=== PATIENT | male | born 1960 | race African-American/Black ===

== ENCOUNTER 2019-05-20 19:49 | Observation (INO) ==
[2019-05-20] MEDS ORDERED: NITROGLYCERIN DRIP 50 MG/250 ML BOTTLE IV PRN (21:20)
[2019-05-20 21:44] LABS: Basophils % 0.6 % (0.0-0.8); Eosinophils # 0.3 10*3/uL (0.0-0.87); Eosinophils % 6.5 % (0.00-10.9); Hematocrit 43.8 VOL% (42.0-52.0); Hemoglobin 13.6 GM/DL (14.0-18.0); Immature Granulocytes % 0.2 %; Immature Granulocytes Absolute 0.01 #; Lymphocytes % 57.3 % (21.2-54.2); Mean Corpuscular HGB Conc 31.1 GM/DL (32-36); Mean Corpuscular Volume 91.4 FL (87-102); Mean Platelet Volume 12.1 FL (9.6-12.0); Monocytes % 13.2 % (1.7-12.7); Neutrophils % 22.2 % (38.7-73.9); Platelet Count 187 T/CUMM (130-400); Red Blood Count 4.79 MC/CUMM (3.8-5.5); Red Cell Distribution Width 15.2 % (9.3-17.3); White Blood Count 5.2 T/CUMM (4-12)
[2019-05-20 21:56] LABS: PT Patient Result 10.7 SECS (9.8-11.9)
[2019-05-20 22:01] LABS: Calcium 9.1 MG/DL (8.5-10.1); Osmolality,Calculated 276.5 MOS/KG (273-304)
[2019-05-20] MEDS ORDERED: ACETAMINOPHEN 325 MG TABLET PO PRN (22:32)
[2019-05-20] MEDS ORDERED: ONDANSETRON 4 MG/2 ML VIAL IV PRN (22:32)
[2019-05-20] MEDS ORDERED: MAGNESIUM HYDROXIDE SUSP 30 ML UDCUP PO PRN (22:32)
[2019-05-20] MEDS ORDERED: GLUCAGON 1 MG VIAL IM PRN (22:32)
[2019-05-20] MEDS ORDERED: ZALEPLON 5 MG CAPSULE PO PRN (22:32)
[2019-05-20] MEDS ORDERED: DEXTROSE 50% 25 GM/50 ML VIAL IV PRN (22:32)
[2019-05-20] MEDS ORDERED: POTASSIUM CHLORIDE 20 MEQ TABLET PO PRN (22:32)
[2019-05-20] MEDS ORDERED: BISACODYL 5 MG TABLET PO PRN (22:32)
[2019-05-20] MEDS ORDERED: NITROGLYCERIN SL 0.4 MG TABLET SL PRN (22:32)
[2019-05-20] MEDS ORDERED: ALBUTEROL 2.5 MG/3 ML NEB RESP TX PRN (22:47)
[2019-05-20] MEDS: MORPHINE 4 MG/1 ML VIAL IV PRN (23:26)
[2019-05-20] MEDS ORDERED: MAGNESIUM SULF RIDER 2 GM in PREMIX 1 EACH IV PRN (23:30)
[2019-05-21 00:45] LABS: Eosinophils 9 % (0-10); Hypochromasia Slight; Lymphocytes 59 % (20-55); Metamyelocytes 1 %; Platelet Estimate Adequate; Segmented Neutrophils 27 % (50-85); Total Cells Counted 100
[2019-05-21] MEDS: MORPHINE 4 MG/1 ML VIAL IV PRN ×3 (02:58→23:35)
[2019-05-21 06:39] LABS: HDL Cholesterol 44 MG/DL (40-60); Risk Ratio 2.57; Triglycerides 81 MG/DL (2-150); Troponin I < 0.015 NG/ML (0.00-0.045); VLDL CHOLESTEROL 16.2 MG/DL
[2019-05-21] MEDS: INSULIN LISPRO 100 UNIT/ML SUBCUT SCH ×4 (08:19→22:40)
[2019-05-21] MEDS: TICAGRELOR 90 MG TABLET PO SCH ×2 (08:20→22:25)
[2019-05-21] MEDS: lisinopriL 10 MG TABLET PO SCH (08:20)
[2019-05-21] MEDS: allopurinoL 100 MG TABLET PO SCH ×2 (08:20→22:26)
[2019-05-21] MEDS: FUROSEMIDE 40 MG TABLET PO SCH ×3 (08:20→22:25)
[2019-05-21] MEDS: carvediloL 3.125 MG TABLET PO SCH ×2 (08:20→17:29)
[2019-05-21] MEDS: ASPIRIN EC 325 MG TABLET PO SCH (08:20)
[2019-05-21] MEDS: ENOXAPARIN 40 MG/0.4 ML SYRINGE SUBCUT SCH (08:42)
[2019-05-21] MEDS: BUDESONIDE/FORMOTEROL 160-4.5 INHALER 6 GM INH SCH ×2 (13:49→22:27)
[2019-05-21] MEDS ORDERED: ATORVASTATIN 40 MG TABLET PO SCH (21:00)
[2019-05-22] MEDS: MORPHINE 4 MG/1 ML VIAL IV PRN (04:20)
[2019-05-22 04:32] LABS: Eosinophils # 0.3 10*3/uL (0.0-0.87); Eosinophils % 6.1 % (0.00-10.9); Hematocrit 42.9 VOL% (42.0-52.0); Hemoglobin 13.8 GM/DL (14.0-18.0); Immature Granulocytes % 0.2 %; Immature Granulocytes Absolute 0.01 #; Lymphocytes # 2.3 10*3/uL (1.4-4.0); Lymphocytes % 54.9 % (21.2-54.2); Mean Corpuscular HGB Conc 32.2 GM/DL (32-36); Mean Corpuscular Volume 87.7 FL (87-102); Mean Platelet Volume 12.5 FL (9.6-12.0); Monocytes % 14.6 % (1.7-12.7); Neutrophils % 23.2 % (38.7-73.9); Platelet Count 177 T/CUMM (130-400); Red Blood Count 4.89 MC/CUMM (3.8-5.5); Red Cell Distribution Width 15.1 % (9.3-17.3); White Blood Count 4.1 T/CUMM (4-12)
[2019-05-22 04:51] LABS: Calcium 9.1 MG/DL (8.5-10.1); Osmolality,Calculated 272.8 MOS/KG (273-304)
[2019-05-22 05:07] LABS: Eosinophils 7 % (0-10); Lymphocytes 64 % (20-55); Platelet Estimate Adequate; Segmented Neutrophils 26 % (50-85); Total Cells Counted 100
[2019-05-22 05:08] LABS: Hypochromasia Slight; Polychromasia Few
[2019-05-22] MEDS: INSULIN LISPRO 100 UNIT/ML SUBCUT SCH (08:58)
[2019-05-22] MEDS ORDERED: RANOLAZINE 500 MG TABLET PO SCH (09:00)
[2019-05-22] MEDS: ENOXAPARIN 40 MG/0.4 ML SYRINGE SUBCUT SCH (09:19)
[2019-05-22] MEDS: TICAGRELOR 90 MG TABLET PO SCH (09:20)
[2019-05-22] MEDS: FUROSEMIDE 40 MG TABLET PO SCH (09:20)
[2019-05-22] MEDS: allopurinoL 100 MG TABLET PO SCH (09:20)
[2019-05-22] MEDS: ASPIRIN EC 325 MG TABLET PO SCH (09:20)
[2019-05-22] MEDS: carvediloL 3.125 MG TABLET PO SCH (09:20)
[2019-05-22] MEDS: lisinopriL 10 MG TABLET PO SCH (09:20)
[2019-05-22] MEDS: BUDESONIDE/FORMOTEROL 160-4.5 INHALER 6 GM INH SCH (09:23)
[2019-05-22 12:01] VITALS: BP 132/72
== END 2019-05-22 11:29 | disposition home or self-care (01) ==
LOC: N.TELEN → SUATTDRO 21:12
PROVIDERS: ADMIT Internal Medicine; ATTEND Internal Medicine

== ENCOUNTER 2019-09-21 11:20 | Observation (INO) ==
[2019-09-21] MEDS ORDERED: ASPIRIN 325 MG TABLET PO STA (11:46)
[2019-09-21] MEDS ORDERED: ENOXAPARIN 100 MG/ML SYRINGE SUBCUT STA (11:46)
[2019-09-21] MEDS ORDERED: ENOXAPARIN 120 MG/0.8 ML SYRINGE SUBCUT ONE (12:13)
[2019-09-21] MEDS: NITROGLYCERIN SL 0.4 MG TABLET SL PRN (12:15)
[2019-09-21 12:25] LABS: Basophils % 0.8 % (0.0-0.8); Eosinophils # 0.3 10*3/uL (0.0-0.87); Eosinophils % 5.3 % (0.00-10.9); Hematocrit 42.1 VOL% (42.0-52.0); Hemoglobin 13.8 GM/DL (14.0-18.0); Immature Granulocytes % 0.2 %; Immature Granulocytes Absolute 0.01 #; Lymphocytes # 2.6 10*3/uL (1.4-4.0); Lymphocytes % 53.8 % (21.2-54.2); Mean Corpuscular HGB Conc 32.8 GM/DL (32-36); Mean Corpuscular Volume 87.3 FL (87-102); Mean Platelet Volume 12.2 FL (9.6-12.0); Neutrophils % 23.9 % (38.7-73.9); Platelet Count 172 T/CUMM (130-400); Red Blood Count 4.82 MC/CUMM (3.8-5.5); Red Cell Distribution Width 14.5 % (9.3-17.3); White Blood Count 4.8 T/CUMM (4-12)
[2019-09-21 12:42] LABS: Bilirubin,Total 0.6 MG/DL (0.2-1.0); Total Protein 7.6 G/DL (6.4-8.3)
[2019-09-21 12:45] LABS: PT Patient Result 10.8 SECS (9.8-11.9)
[2019-09-21] MEDS ORDERED: diphenhydrAMINE CAP 25 MG CAPSULE PO PRN (12:56)
[2019-09-21] MEDS ORDERED: LACTULOSE 20 GM/30 ML UDCUP PO PRN (12:56)
[2019-09-21] MEDS ORDERED: ZALEPLON 5 MG CAPSULE PO PRN (12:56)
[2019-09-21] MEDS ORDERED: hydrALAZINE 20 MG/1 ML VIAL IV PRN (12:56)
[2019-09-21] MEDS ORDERED: BISACODYL 5 MG TABLET PO PRN (12:56)
[2019-09-21] MEDS ORDERED: ACETAMINOPHEN 325 MG TABLET PO PRN (12:56)
[2019-09-21] MEDS ORDERED: MAGNESIUM SULF RIDER 2 GM in PREMIX 1 EACH IV PRN (12:56)
[2019-09-21] MEDS ORDERED: POTASSIUM CHLORIDE 20 MEQ TABLET PO PRN (12:56)
[2019-09-21] MEDS ORDERED: ALUMINUM/MAGNES/SIMETH MAX STR 30 ML UDCUP PO PRN (12:56)
[2019-09-21] MEDS ORDERED: SIMETHICONE CHEW 125 MG TABLET PO PRN (13:00)
[2019-09-21] MEDS ORDERED: ENOXAPARIN 40 MG/0.4 ML SYRINGE SUBCUT SCH (13:00)
[2019-09-21] MEDS ORDERED: CALCIUM CARBONATE CHEW 500 MG TABLET PO PRN (13:00)
[2019-09-21] MEDS ORDERED: GLUCAGON 1 MG VIAL IM PRN (13:06)
[2019-09-21] MEDS ORDERED: DEXTROSE 50% 25 GM/50 ML VIAL IV PRN (13:06)
[2019-09-21 13:14] LABS: Band Neutrophils 1 % (0-10); Eosinophils 5 % (0-10); Lymphocytes 51 % (20-55); Platelet Estimate Normal; Segmented Neutrophils 32 % (50-85); Total Cells Counted 100
[2019-09-21] MEDS ORDERED: MAGNESIUM SULF RIDER 4 GM in PREMIX 1 EACH IV PRN (14:00)
[2019-09-21] MEDS: INSULIN LISPRO 100 UNIT/ML SUBCUT SCH ×2 (15:32→21:10)
[2019-09-21] MEDS: FUROSEMIDE 40 MG TABLET PO SCH ×2 (15:33→20:51)
[2019-09-21] MEDS: LABETALOL 200 MG TABLET PO SCH (20:51)
[2019-09-21] MEDS: TICAGRELOR 90 MG TABLET PO SCH (20:51)
[2019-09-21] MEDS: LUBIPROSTONE 24 MCG CAPSULE PO SCH (20:51)
[2019-09-21] MEDS: ATORVASTATIN 40 MG TABLET PO SCH (20:51)
[2019-09-21] MEDS: allopurinoL 100 MG TABLET PO SCH (20:51)
[2019-09-21] MEDS ORDERED: guaiFENesin/DM ER 600-30 MG TABLET PO PRN (21:00)
[2019-09-21] MEDS ORDERED: ENOXAPARIN 150 MG/ML SYRINGE SUBCUT ONE (21:00)
[2019-09-21] MEDS: MORPHINE 4 MG/1 ML VIAL IV PRN (22:04)
[2019-09-21] MEDS: ONDANSETRON 4 MG/2 ML VIAL IV PRN (22:05)
[2019-09-22] MEDS: MORPHINE 4 MG/1 ML VIAL IV PRN ×3 (02:28→23:04)
[2019-09-22] MEDS: ONDANSETRON 4 MG/2 ML VIAL IV PRN (02:28)
[2019-09-22 06:05] LABS: Basophils % 0.8 % (0.0-0.8); Eosinophils # 0.3 10*3/uL (0.0-0.87); Hematocrit 43.1 VOL% (42.0-52.0); Hemoglobin 13.4 GM/DL (14.0-18.0); Lymphocytes # 3.1 10*3/uL (1.4-4.0); Lymphocytes % 61.5 % (21.2-54.2); Mean Corpuscular HGB Conc 31.1 GM/DL (32-36); Mean Platelet Volume 12.4 FL (9.6-12.0); Monocytes % 13.8 % (1.7-12.7); Neutrophils % 18.9 % (38.7-73.9); Platelet Count 176 T/CUMM (130-400); Red Blood Count 4.79 MC/CUMM (3.8-5.5); Red Cell Distribution Width 14.4 % (9.3-17.3)
[2019-09-22 06:41] LABS: Blood Urea Nitrogen 9 MG/DL (7-18); Calcium 8.9 MG/DL (8.5-10.1); Estimated Glom Filtration Rate 107 ML/MIN; Glucose 81 MG/DL (74-106); HDL Cholesterol 39 MG/DL (40-60); Osmolality,Calculated 272.7 MOS/KG (273-304); Risk Ratio 2.33; Triglycerides 61 MG/DL (2-150); Troponin I < 0.015 NG/ML (0.00-0.045); VLDL CHOLESTEROL 12.2 MG/DL
[2019-09-22 06:49] LABS: Eosinophils 7 % (0-10); Lymphocytes 57 % (20-55); Segmented Neutrophils 20 % (50-85); Total Cells Counted 100
[2019-09-22 06:50] LABS: Hypochromasia 1+; Ovalocytes Slight; Platelet Estimate Adequate
[2019-09-22] MEDS ORDERED: DIAZEPAM 5 MG TABLET PO ONE (07:36)
[2019-09-22] MEDS ORDERED: diphenhydrAMINE CAP 25 MG CAPSULE PO ONE ×2 (07:36→10:30)
[2019-09-22] MEDS ORDERED: SODIUM CHLORIDE 0.45% 1,000 ML IV SCH (08:00)
[2019-09-22] MEDS ORDERED: lisinopriL 10 MG TABLET PO SCH (09:00)
[2019-09-22] MEDS ORDERED: ENOXAPARIN 40 MG/0.4 ML SYRINGE SUBCUT SCH (09:00)
[2019-09-22] MEDS ORDERED: CYANOCOBALAMIN 1000 MCG/1 ML VIAL IM SCH (09:00)
[2019-09-22] MEDS: ASPIRIN EC 81 MG TABLET PO SCH (09:10)
[2019-09-22] MEDS: DILTIAZEM CD 180 MG CAPSULE PO SCH (09:11)
[2019-09-22] MEDS: PANTOPRAZOLE 40 MG TABLET PO SCH (09:13)
[2019-09-22] MEDS: LABETALOL 200 MG TABLET PO SCH ×2 (09:13→21:29)
[2019-09-22] MEDS: INSULIN LISPRO 100 UNIT/ML SUBCUT SCH ×4 (09:50→21:31)
[2019-09-22] MEDS ORDERED: HEPARIN/NACL 0.9% 2 UNITS/ML 1,500 ML IV ONE (09:56)
[2019-09-22] MEDS ORDERED: LIDOCAINE 1% 20 ML VIAL ONE ×2 (09:56→11:11)
[2019-09-22] MEDS: ISOSORBIDE MONONITRATE 60 MG TABLET PO SCH (10:28)
[2019-09-22] MEDS: LUBIPROSTONE 24 MCG CAPSULE PO SCH ×2 (10:28→21:31)
[2019-09-22] MEDS: TICAGRELOR 90 MG TABLET PO SCH ×2 (10:28→21:28)
[2019-09-22] MEDS: FUROSEMIDE 40 MG TABLET PO SCH ×3 (10:28→21:29)
[2019-09-22] MEDS: allopurinoL 100 MG TABLET PO SCH ×2 (10:29→21:28)
[2019-09-22] MEDS: predniSONE 20 MG TABLET PO SCH ×3 (10:38→21:29)
[2019-09-22] MEDS: FAMOTIDINE 20 MG/2 ML VIAL IV SCH ×2 (10:38→21:30)
[2019-09-22] MEDS: diphenhydrAMINE 50 MG/1 ML VIAL IV SCH ×3 (10:43→23:11)
[2019-09-22] MEDS ORDERED: fentaNYL 100 MCG/2 ML VIAL ONE (11:11)
[2019-09-22] MEDS ORDERED: MIDAZOLAM 2 MG/2 ML VIAL ONE ×2 (11:11→12:00)
[2019-09-22] MEDS ORDERED: HEPARIN 5,000 UNIT/1 ML VIAL ONE (11:54)
[2019-09-22] MEDS ORDERED: TICAGRELOR 90 MG TABLET ONE (11:55)
[2019-09-22] MEDS ORDERED: diphenhydrAMINE 50 MG/1 ML VIAL IV SCH (12:00)
[2019-09-22] MEDS ORDERED: NITROGLYCERIN DRIP 50 MG/250 ML BOTTLE IV ONE (12:02)
[2019-09-22] MEDS ORDERED: SODIUM CHLORIDE 0.9% 1,000 ML IV SCH (13:00)
[2019-09-22] MEDS: NITROGLYCERIN SL 0.4 MG TABLET SL PRN ×2 (17:59→18:16)
[2019-09-22] MEDS: ATORVASTATIN 40 MG TABLET PO SCH (21:29)
[2019-09-23] MEDS: predniSONE 20 MG TABLET PO SCH ×4 (03:36→21:04)
[2019-09-23] MEDS: diphenhydrAMINE 50 MG/1 ML VIAL IV SCH ×3 (03:37→15:42)
[2019-09-23] MEDS: MORPHINE 4 MG/1 ML VIAL IV PRN ×3 (05:16→21:13)
[2019-09-23 05:28] LABS: Basophils % 0.2 % (0.0-0.8); Hematocrit 41.3 VOL% (42.0-52.0); Hemoglobin 13.3 GM/DL (14.0-18.0); Immature Granulocytes % 0.5 %; Immature Granulocytes Absolute 0.03 #; Lymphocytes # 1.1 10*3/uL (1.4-4.0); Lymphocytes % 17.6 % (21.2-54.2); Mean Corpuscular HGB Conc 32.2 GM/DL (32-36); Mean Corpuscular Volume 89.8 FL (87-102); Mean Platelet Volume 11.8 FL (9.6-12.0); Monocytes % 1.1 % (1.7-12.7); Neutrophils % 80.6 % (38.7-73.9); Platelet Count 189 T/CUMM (130-400); Red Cell Distribution Width 14.6 % (9.3-17.3); White Blood Count 6.5 T/CUMM (4-12)
[2019-09-23 05:52] LABS: Osmolality,Calculated 276.1 MOS/KG (273-304)
[2019-09-23] MEDS: TICAGRELOR 90 MG TABLET PO SCH ×2 (09:54→21:03)
[2019-09-23] MEDS: DILTIAZEM CD 180 MG CAPSULE PO SCH (09:54)
[2019-09-23] MEDS: LABETALOL 200 MG TABLET PO SCH ×2 (09:55→21:04)
[2019-09-23] MEDS: LUBIPROSTONE 24 MCG CAPSULE PO SCH ×2 (09:55→21:04)
[2019-09-23] MEDS: ASPIRIN EC 81 MG TABLET PO SCH (09:56)
[2019-09-23] MEDS: allopurinoL 100 MG TABLET PO SCH ×2 (09:57→21:04)
[2019-09-23] MEDS: ISOSORBIDE MONONITRATE 60 MG TABLET PO SCH (09:57)
[2019-09-23] MEDS: PANTOPRAZOLE 40 MG TABLET PO SCH (09:57)
[2019-09-23] MEDS: INSULIN LISPRO 100 UNIT/ML SUBCUT SCH ×4 (09:58→21:09)
[2019-09-23 10:03] LABS: Troponin I < 0.015 NG/ML (0.00-0.045)
[2019-09-23] MEDS: FAMOTIDINE 20 MG/2 ML VIAL IV SCH ×2 (10:13→21:09)
[2019-09-23] MEDS ORDERED: ISOSORBIDE MONONITRATE 30 MG TABLET PO ONE (11:48)
[2019-09-23] MEDS: SODIUM CHLORIDE 0.9% 1,000 ML IV SCH (12:05)
[2019-09-23 12:34] LABS: Troponin I < 0.015 NG/ML (0.00-0.045)
[2019-09-23 15:22] LABS: Troponin I < 0.015 NG/ML (0.00-0.045)
[2019-09-23] MEDS: ATORVASTATIN 40 MG TABLET PO SCH (21:04)
[2019-09-24] MEDS: diphenhydrAMINE 50 MG/1 ML VIAL IV SCH ×2 (00:20→04:27)
[2019-09-24] MEDS: MORPHINE 4 MG/1 ML VIAL IV PRN (02:34)
[2019-09-24] MEDS: predniSONE 20 MG TABLET PO SCH (04:19)
[2019-09-24 05:34] LABS: Hematocrit 36.4 VOL% (42.0-52.0); Hemoglobin 11.9 GM/DL (14.0-18.0); Immature Granulocytes % 0.5 %; Immature Granulocytes Absolute 0.05 #; Lymphocytes # 1.4 10*3/uL (1.4-4.0); Lymphocytes % 12.7 % (21.2-54.2); Mean Corpuscular HGB Conc 32.7 GM/DL (32-36); Mean Corpuscular Volume 88.6 FL (87-102); Mean Platelet Volume 12.3 FL (9.6-12.0); Neutrophils % 82.8 % (38.7-73.9); Platelet Count 178 T/CUMM (130-400); Red Blood Count 4.11 MC/CUMM (3.8-5.5); Red Cell Distribution Width 14.6 % (9.3-17.3)
[2019-09-24 06:06] LABS: Calcium 8.4 MG/DL (8.5-10.1); Osmolality,Calculated 276.8 MOS/KG (273-304)
[2019-09-24 06:08] LABS: Calcium 8.5 MG/DL (8.5-10.1); Osmolality,Calculated 276.8 MOS/KG (273-304)
[2019-09-24] MEDS ORDERED: ISOSORBIDE MONONITRATE 30 MG TABLET PO SCH (09:00)
[2019-09-24] MEDS: PANTOPRAZOLE 40 MG TABLET PO SCH (10:27)
[2019-09-24] MEDS: allopurinoL 100 MG TABLET PO SCH (10:27)
[2019-09-24] MEDS: DILTIAZEM CD 180 MG CAPSULE PO SCH (10:27)
[2019-09-24] MEDS: TICAGRELOR 90 MG TABLET PO SCH (10:28)
[2019-09-24] MEDS: LUBIPROSTONE 24 MCG CAPSULE PO SCH (10:29)
[2019-09-24] MEDS: INSULIN LISPRO 100 UNIT/ML SUBCUT SCH ×2 (10:29→12:28)
[2019-09-24] MEDS: LABETALOL 200 MG TABLET PO SCH (10:29)
[2019-09-24] MEDS: ASPIRIN EC 81 MG TABLET PO SCH (10:34)
[2019-09-24] MEDS: SODIUM CHLORIDE 0.9% 1,000 ML IV SCH (11:52)
[2019-09-24 12:22] VITALS: BP 113/69
== END 2019-09-24 12:51 | disposition home or self-care (01) ==
LOC: N.ED 11:20 → N.EDINP 11:20 → MERGE 12:56 → N.EDINP 14:20 → N.TELES 14:23
PROVIDERS: ADMIT Internal Medicine Cardiovascular Disease; ATTEND Internal Medicine Cardiovascular Disease
PROC: CLCCHCL (ICD-10-PCS; 2019-09-22 11:45)

== ENCOUNTER 2019-09-28 11:37 | Observation (INO) ==
[2019-09-28] MEDS ORDERED: MORPHINE 4 MG/1 ML VIAL IV STA (12:06)
[2019-09-28] MEDS ORDERED: ONDANSETRON 4 MG/2 ML VIAL IV STA (12:06)
[2019-09-28] MEDS ORDERED: ASPIRIN 325 MG TABLET PO STA (12:06)
[2019-09-28] MEDS ORDERED: NITROGLYCERIN 2% OINT 1 INCH/GM PACK TOP STA (12:06)
[2019-09-28 12:16] LABS: Apearance,Urine CLEAR (Clear); Bilirubin,Urine Negative (Negative); Blood, Urine Negative (Negative); Glucose,Urine (UA) Negative (Negative); Ketones,Urine Negative (Negative); Nitrite,Urine Negative (Negative); Protein,Urine Negative; RBC,Urine <1 /HPF (0-4); Urine Color Colorless (Yellow); Urine Specific Gravity 1.004 (1.001-1.035); Urine Urobilinogen < 2.0 EU/DL (0.2-1.0)
[2019-09-28 12:16] LABS: Basophils % 0.3 % (0.0-0.8); Eosinophils # 0.2 10*3/uL (0.0-0.87); Eosinophils % 2.4 % (0.00-10.9); Hematocrit 43.3 VOL% (42.0-52.0); Hemoglobin 14.1 GM/DL (14.0-18.0); Immature Granulocytes % 0.4 %; Immature Granulocytes Absolute 0.04 #; Lymphocytes # 2.4 10*3/uL (1.4-4.0); Lymphocytes % 25.1 % (21.2-54.2); Mean Corpuscular HGB Conc 32.6 GM/DL (32-36); Mean Corpuscular Volume 87.3 FL (87-102); Mean Platelet Volume 11.6 FL (9.6-12.0); NRBC # 0.02 10*3/uL; Neutrophils % 57.8 % (38.7-73.9); Platelet Count 186 T/CUMM (130-400); Red Blood Count 4.96 MC/CUMM (3.8-5.5); Red Cell Distribution Width 14.6 % (9.3-17.3); White Blood Count 9.7 T/CUMM (4-12)
[2019-09-28 12:25] LABS: PT Patient Result 10.9 SECS (9.8-11.9); Partial Thromboplastin Time 31.3 SECS (23.9-33.8)
[2019-09-28 12:26] LABS: Albumin 3.7 G/DL (3.4-5.0); Calcium 9.2 MG/DL (8.5-10.1)
[2019-09-28 12:32] LABS: Ferritin 184.8 ng/ml (26-388)
[2019-09-28] MEDS ORDERED: ACETAMINOPHEN 500 MG TABLET PO STA (12:32)
[2019-09-28] MEDS ORDERED: ACETAMINOPHEN 500 MG TABLET ONE (12:34)
[2019-09-28] MEDS ORDERED: LEVOFLOXACIN INJ 500 MG in PREMIX 1 EACH IV STA (14:06)
[2019-09-28] MEDS ORDERED: SODIUM CHLORIDE 0.9% 1,000 ML IV STA (14:06)
[2019-09-28] MEDS ORDERED: ONDANSETRON 4 MG/2 ML VIAL IV PRN (14:28)
[2019-09-28] MEDS ORDERED: DEXTROSE 50% 25 GM/50 ML VIAL IV PRN (14:28)
[2019-09-28] MEDS ORDERED: GLUCAGON 1 MG VIAL IM PRN (14:28)
[2019-09-28] MEDS ORDERED: BISACODYL 5 MG TABLET PO PRN (14:28)
[2019-09-28] MEDS ORDERED: ALBUTEROL 2.5 MG/3 ML NEB RESP TX PRN (14:37)
[2019-09-28] MEDS ORDERED: NITROGLYCERIN SL 0.4 MG TABLET SL PRN (14:37)
[2019-09-28] MEDS ORDERED: INSULIN REGULAR 100 UNIT/ML SUBCUT SCH (16:30)
[2019-09-28] MEDS ORDERED: MORPHINE 4 MG/1 ML VIAL IV PRN (18:19)
[2019-09-28] MEDS ORDERED: predniSONE 20 MG TABLET PO ONE (18:54)
[2019-09-28] MEDS: BUDESONIDE/FORMOTEROL 160-4.5 INHALER 6 GM INH SCH (20:50)
[2019-09-28] MEDS: allopurinoL 100 MG TABLET PO SCH (20:51)
[2019-09-28] MEDS: ACETAMINOPHEN 325 MG TABLET PO PRN (20:51)
[2019-09-28] MEDS: TICAGRELOR 90 MG TABLET PO SCH (20:51)
[2019-09-28] MEDS: ATORVASTATIN 40 MG TABLET PO SCH (20:51)
[2019-09-28] MEDS: LUBIPROSTONE 24 MCG CAPSULE PO SCH (20:51)
[2019-09-28] MEDS: ENOXAPARIN 40 MG/0.4 ML SYRINGE SUBCUT SCH (20:52)
[2019-09-29] MEDS: ACETAMINOPHEN 325 MG TABLET PO PRN (00:40)
[2019-09-29 06:55] LABS: Basophils % 0.1 % (0.0-0.8); Eosinophils % 0.1 % (0.00-10.9); Hematocrit 40.8 VOL% (42.0-52.0); Hemoglobin 13.1 GM/DL (14.0-18.0); Immature Granulocytes % 0.3 %; Immature Granulocytes Absolute 0.03 #; Lymphocytes # 1.1 10*3/uL (1.4-4.0); Lymphocytes % 12.6 % (21.2-54.2); Mean Corpuscular HGB Conc 32.1 GM/DL (32-36); Mean Corpuscular Volume 88.5 FL (87-102); Mean Platelet Volume 11.9 FL (9.6-12.0); Monocytes % 4.4 % (1.7-12.7); Neutrophils % 82.5 % (38.7-73.9); Platelet Count 192 T/CUMM (130-400); Red Blood Count 4.61 MC/CUMM (3.8-5.5); Red Cell Distribution Width 14.7 % (9.3-17.3); White Blood Count 9.1 T/CUMM (4-12)
[2019-09-29 07:24] LABS: Calcium 8.8 MG/DL (8.5-10.1); Osmolality,Calculated 271.2 MOS/KG (273-304)
[2019-09-29] MEDS: allopurinoL 100 MG TABLET PO SCH ×2 (08:36→20:45)
[2019-09-29] MEDS: ASPIRIN EC 81 MG TABLET PO SCH (08:36)
[2019-09-29] MEDS: DILTIAZEM CD 180 MG CAPSULE PO SCH (08:36)
[2019-09-29] MEDS: lisinopriL 10 MG TABLET PO SCH (08:37)
[2019-09-29] MEDS: FAMOTIDINE 20 MG TABLET PO SCH ×2 (08:37→20:45)
[2019-09-29] MEDS: carvediloL 3.125 MG TABLET PO SCH ×2 (08:37→16:49)
[2019-09-29] MEDS: RANOLAZINE 500 MG TABLET PO SCH ×2 (08:37→20:45)
[2019-09-29] MEDS: TICAGRELOR 90 MG TABLET PO SCH ×2 (08:37→20:45)
[2019-09-29] MEDS: FUROSEMIDE 40 MG TABLET PO SCH (08:37)
[2019-09-29] MEDS: ISOSORBIDE MONONITRATE 30 MG TABLET PO SCH (08:37)
[2019-09-29] MEDS ORDERED: LEVOFLOXACIN INJ 750 MG in PREMIX 1 EACH IV SCH (09:30)
[2019-09-29] MEDS: BUDESONIDE/FORMOTEROL 160-4.5 INHALER 6 GM INH SCH ×2 (09:44→20:45)
[2019-09-29] MEDS: LEVOFLOXACIN 750 MG TABLET PO SCH (11:08)
[2019-09-29] MEDS: ENOXAPARIN 40 MG/0.4 ML SYRINGE SUBCUT SCH (20:45)
[2019-09-29] MEDS: ATORVASTATIN 40 MG TABLET PO SCH (20:45)
[2019-09-29] MEDS: LUBIPROSTONE 24 MCG CAPSULE PO SCH (20:45)
[2019-09-30 05:06] LABS: Basophils % 0.2 % (0.0-0.8); Eosinophils # 0.2 10*3/uL (0.0-0.87); Eosinophils % 2.8 % (0.00-10.9); Hematocrit 38.5 VOL% (42.0-52.0); Hemoglobin 12.4 GM/DL (14.0-18.0); Immature Granulocytes % 0.5 %; Immature Granulocytes Absolute 0.04 #; Lymphocytes # 2.5 10*3/uL (1.4-4.0); Lymphocytes % 29.4 % (21.2-54.2); Mean Corpuscular HGB Conc 32.2 GM/DL (32-36); Mean Corpuscular Volume 87.9 FL (87-102); Mean Platelet Volume 11.7 FL (9.6-12.0); Monocytes % 17.7 % (1.7-12.7); Neutrophils % 49.4 % (38.7-73.9); Platelet Count 174 T/CUMM (130-400); Red Blood Count 4.38 MC/CUMM (3.8-5.5); Red Cell Distribution Width 14.6 % (9.3-17.3); White Blood Count 8.4 T/CUMM (4-12)
[2019-09-30 05:25] LABS: Calcium 8.5 MG/DL (8.5-10.1); Osmolality,Calculated 270.1 MOS/KG (273-304)
[2019-09-30 05:44] VITALS: BP 123/73
[2019-09-30 06:44] LABS: Acanthocytes Few; Anisocytosis 1+; Band Neutrophils 1 % (0-10); Eosinophils 6 % (0-10); Lymphocytes 23 % (20-55); Platelet Estimate Normal; Segmented Neutrophils 57 % (50-85); Total Cells Counted 100
[2019-09-30] MEDS: FUROSEMIDE 40 MG TABLET PO SCH (09:16)
[2019-09-30] MEDS: lisinopriL 10 MG TABLET PO SCH (09:16)
[2019-09-30] MEDS: LEVOFLOXACIN 750 MG TABLET PO SCH (09:16)
[2019-09-30] MEDS: ASPIRIN EC 81 MG TABLET PO SCH (09:16)
[2019-09-30] MEDS: RANOLAZINE 500 MG TABLET PO SCH (09:16)
[2019-09-30] MEDS: ISOSORBIDE MONONITRATE 30 MG TABLET PO SCH (09:16)
[2019-09-30] MEDS: TICAGRELOR 90 MG TABLET PO SCH (09:17)
[2019-09-30] MEDS: carvediloL 3.125 MG TABLET PO SCH (09:17)
[2019-09-30] MEDS: DILTIAZEM CD 180 MG CAPSULE PO SCH (09:17)
[2019-09-30] MEDS: FAMOTIDINE 20 MG TABLET PO SCH (09:17)
[2019-09-30] MEDS: BUDESONIDE/FORMOTEROL 160-4.5 INHALER 6 GM INH SCH (09:17)
[2019-09-30] MEDS: allopurinoL 100 MG TABLET PO SCH (09:17)
== END 2019-09-30 12:05 | disposition home or self-care (01) ==
LOC: EDUNIT# → EDBD → N.ED 11:37 → N.EDINP 11:37 → N.2E 17:07
PROVIDERS: ADMIT Family Medicine; ATTEND Family Medicine

== ENCOUNTER 2020-03-17 22:06 | Observation (INO) ==
[2020-03-18] MEDS ORDERED: NICOTINE 21 MG/24 HR PATCH TRANSDERM PRN (00:08)
[2020-03-18] MEDS ORDERED: hydrALAZINE 20 MG/1 ML VIAL IV PRN (00:08)
[2020-03-18] MEDS ORDERED: GLUCAGON 1 MG VIAL IM PRN ×2 (00:08)
[2020-03-18] MEDS ORDERED: ALUMINUM/MAGNES/SIMETH MAX STR 30 ML UDCUP PO PRN (00:08)
[2020-03-18] MEDS ORDERED: guaiFENesin/DM ER 600-30 MG TABLET PO PRN (00:08)
[2020-03-18] MEDS ORDERED: CALCIUM CARBONATE CHEW 500 MG TABLET PO PRN (00:08)
[2020-03-18] MEDS ORDERED: ACETAMINOPHEN 325 MG TABLET PO PRN (00:08)
[2020-03-18] MEDS ORDERED: DEXTROSE 50% 25 GM/50 ML VIAL IV PRN ×2 (00:08)
[2020-03-18] MEDS ORDERED: BISACODYL 5 MG TABLET PO PRN (00:08)
[2020-03-18] MEDS ORDERED: SIMETHICONE CHEW 125 MG TABLET PO PRN (00:08)
[2020-03-18] MEDS ORDERED: ZALEPLON 5 MG CAPSULE PO PRN (00:08)
[2020-03-18] MEDS ORDERED: NITROGLYCERIN SL 0.4 MG TABLET SL PRN (00:21)
[2020-03-18] MEDS: ALBUTEROL/IPRATROPIUM 3 ML NEB RESP TX SCH ×4 (01:07→19:24)
[2020-03-18 01:11] LABS: Calcium 8.3 MG/DL (8.5-10.1); Osmolality,Calculated 279.3 MOS/KG (273-304); Potassium 3.6 MMOL/L (3.5-5.1)
[2020-03-18 01:15] LABS: Basophils % 0.6 % (0.0-0.8); Eosinophils # 0.3 10*3/uL (0.0-0.87); Eosinophils % 6.2 % (0.00-10.9); Hematocrit 42.8 VOL% (42.0-52.0); Hemoglobin 13.4 GM/DL (14.0-18.0); Immature Granulocytes % 0.2 %; Immature Granulocytes Absolute 0.01 #; Lymphocytes # 2.7 10*3/uL (1.4-4.0); Lymphocytes % 52.3 % (21.2-54.2); Mean Corpuscular HGB Conc 31.3 GM/DL (32-36); Mean Corpuscular Volume 90.1 FL (87-102); Mean Platelet Volume 12.2 FL (9.6-12.0); Neutrophils % 27.7 % (38.7-73.9); Platelet Count 187 T/CUMM (130-400); Red Blood Count 4.75 MC/CUMM (3.8-5.5); Red Cell Distribution Width 14.7 % (9.3-17.3); White Blood Count 5.2 T/CUMM (4-12)
[2020-03-18] MEDS: ONDANSETRON 4 MG/2 ML VIAL IV PRN ×2 (02:02→06:24)
[2020-03-18] MEDS: MORPHINE 4 MG/1 ML VIAL IV PRN ×4 (02:02→20:29)
[2020-03-18] MEDS: SODIUM CHLORIDE 0.9% 1,000 ML IV SCH ×3 (03:08→20:27)
[2020-03-18] MEDS: LEVOFLOXACIN INJ 750 MG in PREMIX 1 EACH IV SCH ×2 (03:12→23:58)
[2020-03-18 04:07] LABS: Eosinophils 7 % (0-10); Lymphocytes 67 % (20-55); Segmented Neutrophils 25 % (50-85); Total Cells Counted 100
[2020-03-18 04:08] LABS: Elliptocytes Few; Microcytosis Slight; Polychromasia Slight; Schistocytes Few
[2020-03-18 04:09] LABS: Platelet Estimate Adequate
[2020-03-18] MEDS: ENOXAPARIN 40 MG/0.4 ML SYRINGE SUBCUT SCH (06:23)
[2020-03-18] MEDS ORDERED: INFLUENZA VIRUS VACCINE 0.5 ML SYRINGE IM ONE (07:15)
[2020-03-18] MEDS: INSULIN LISPRO 100 UNIT/ML SUBCUT SCH ×4 (08:04→20:28)
[2020-03-18] MEDS ORDERED: PANTOPRAZOLE 40 MG TABLET PO SCH (09:00)
[2020-03-18] MEDS: TICAGRELOR 90 MG TABLET PO SCH ×2 (09:39→20:28)
[2020-03-18] MEDS: ASPIRIN EC 81 MG TABLET PO SCH (09:39)
[2020-03-18] MEDS: FUROSEMIDE 40 MG TABLET PO SCH (09:40)
[2020-03-18] MEDS: ISOSORBIDE MONONITRATE 30 MG TABLET PO SCH (09:40)
[2020-03-18] MEDS: LABETALOL 200 MG TABLET PO SCH ×2 (09:40→20:28)
[2020-03-18] MEDS: allopurinoL 100 MG TABLET PO SCH ×2 (09:40→20:27)
[2020-03-18] MEDS: lisinopriL 10 MG TABLET PO SCH (09:40)
[2020-03-18] MEDS: PANTOPRAZOLE 40 MG TABLET PO SCH (20:28)
[2020-03-18] MEDS ORDERED: ATORVASTATIN 40 MG TABLET PO SCH (21:00)
[2020-03-19] MEDS: MORPHINE 4 MG/1 ML VIAL IV PRN ×2 (01:17→10:03)
[2020-03-19] MEDS: ALBUTEROL/IPRATROPIUM 3 ML NEB RESP TX SCH ×3 (01:48→13:15)
[2020-03-19 05:37] LABS: Basophils % 0.4 % (0.0-0.8); Eosinophils # 0.3 10*3/uL (0.0-0.87); Eosinophils % 7.1 % (0.00-10.9); Hematocrit 37.7 VOL% (42.0-52.0); Hemoglobin 12.2 GM/DL (14.0-18.0); Lymphocytes # 2.6 10*3/uL (1.4-4.0); Lymphocytes % 55.3 % (21.2-54.2); Mean Corpuscular HGB Conc 32.4 GM/DL (32-36); Mean Platelet Volume 12.4 FL (9.6-12.0); Monocytes % 12.1 % (1.7-12.7); Neutrophils % 25.1 % (38.7-73.9); Platelet Count 160 T/CUMM (130-400); Red Blood Count 4.19 MC/CUMM (3.8-5.5); White Blood Count 4.6 T/CUMM (4-12)
[2020-03-19] MEDS: ENOXAPARIN 40 MG/0.4 ML SYRINGE SUBCUT SCH (05:56)
[2020-03-19 05:57] LABS: Albumin 3.2 G/DL (3.4-5.0); Bilirubin,Total 0.7 MG/DL (0.2-1.0); Calcium 7.8 MG/DL (8.5-10.1); Osmolality,Calculated 277.3 MOS/KG (273-304); Potassium 3.8 MMOL/L (3.5-5.1); Total Protein 6.5 G/DL (6.4-8.3)
[2020-03-19 05:57] LABS: Risk Ratio 2.21; VLDL CHOLESTEROL 14.6 MG/DL
[2020-03-19 06:08] LABS: Eosinophils 7 % (0-10); Hypochromasia 1+; Lymphocytes 61 % (20-55); Microcytosis 1+; Platelet Estimate Adequate; Segmented Neutrophils 25 % (50-85); Total Cells Counted 100
[2020-03-19] MEDS: INSULIN LISPRO 100 UNIT/ML SUBCUT SCH ×3 (08:06→15:52)
[2020-03-19] MEDS: ASPIRIN EC 81 MG TABLET PO SCH (09:12)
[2020-03-19] MEDS: ISOSORBIDE MONONITRATE 30 MG TABLET PO SCH (09:13)
[2020-03-19] MEDS: LABETALOL 200 MG TABLET PO SCH (09:13)
[2020-03-19] MEDS: PANTOPRAZOLE 40 MG TABLET PO SCH (09:13)
[2020-03-19] MEDS: TICAGRELOR 90 MG TABLET PO SCH (09:14)
[2020-03-19] MEDS: SODIUM CHLORIDE 0.9% 1,000 ML IV SCH (09:14)
[2020-03-19] MEDS: FUROSEMIDE 40 MG TABLET PO SCH (09:14)
[2020-03-19] MEDS: allopurinoL 100 MG TABLET PO SCH (09:14)
[2020-03-19] MEDS: lisinopriL 10 MG TABLET PO SCH (09:14)
[2020-03-19] MEDS ORDERED: ALBUTEROL 2.5 MG/3 ML NEB RESP TX PRN (10:22)
[2020-03-19] MEDS ORDERED: BUDESONIDE/FORMOTEROL 160-4.5 INHALER 6 GM INH PRN (10:22)
[2020-03-19] MEDS ORDERED: KETOROLAC 30 MG/1 ML VIAL IV ONE (10:22)
[2020-03-19] MEDS ORDERED: HEPARIN/NACL 0.9% 2 UNITS/ML 1,500 ML IV ONE (10:52)
[2020-03-19] MEDS ORDERED: LIDOCAINE 1% 20 ML VIAL ONE (10:56)
[2020-03-19] MEDS ORDERED: MIDAZOLAM 2 MG/2 ML VIAL ONE (11:06)
[2020-03-19] MEDS ORDERED: fentaNYL 100 MCG/2 ML VIAL ONE (11:06)
[2020-03-19] MEDS ORDERED: FAMOTIDINE 20 MG/2 ML VIAL IV ONE (11:15)
[2020-03-19] MEDS ORDERED: methylPREDNISolone SOD SUC 125 MG/2 ML VIAL ONE (11:15)
[2020-03-19 14:42] VITALS: BP 153/66
[2020-03-19] MEDS ORDERED: GABAPENTIN 100 MG CAPSULE PO SCH (15:00)
[2020-03-19] MEDS ORDERED: LUBIPROSTONE 24 MCG CAPSULE PO SCH (21:00)
[2020-03-19] MEDS ORDERED: RANOLAZINE 500 MG TABLET PO SCH (21:00)
== END 2020-03-19 16:45 | disposition home or self-care (01) ==
LOC: N.TELEN → SUATTDRO 23:42
PROVIDERS: ADMIT Internal Medicine; ATTEND Internal Medicine
PROC: CLCCHCL (ICD-10-PCS; 2020-03-19 11:00)

== ENCOUNTER 2020-08-29 12:34 | Observation (INO) ==
[2020-08-29 13:55] LABS: Basophils % 0.6 % (0.0-0.8); Eosinophils # 0.3 10*3/uL (0.0-0.87); Eosinophils % 5.5 % (0.00-10.9); Hematocrit 36.7 VOL% (42.0-52.0); Hemoglobin 12.1 GM/DL (14.0-18.0); Immature Granulocytes % 0.2 %; Immature Granulocytes Absolute 0.01 #; Lymphocytes # 3.1 10*3/uL (1.4-4.0); Lymphocytes % 56.4 % (21.2-54.2); Mean Corpuscular Volume 89.1 FL (87-102); Mean Platelet Volume 11.5 FL (9.6-12.0); Monocytes % 14.4 % (1.7-12.7); Neutrophils % 22.9 % (38.7-73.9); Platelet Count 201 T/CUMM (130-400); Red Blood Count 4.12 MC/CUMM (3.8-5.5); Red Cell Distribution Width 15.1 % (9.3-17.3); White Blood Count 5.4 T/CUMM (4-12)
[2020-08-29] MEDS ORDERED: ONDANSETRON 4 MG/2 ML VIAL IV STA (14:28)
[2020-08-29] MEDS ORDERED: ENOXAPARIN 120 MG/0.8 ML SYRINGE SUBCUT STA (14:28)
[2020-08-29] MEDS ORDERED: NITROGLYCERIN 2% OINT 1 INCH/GM PACK TOP STA (14:28)
[2020-08-29] MEDS ORDERED: MORPHINE 10 MG/1 ML VIAL IV STA (14:28)
[2020-08-29] MEDS ORDERED: ONDANSETRON 4 MG/2 ML VIAL ONE (14:29)
[2020-08-29] MEDS ORDERED: ENOXAPARIN 120 MG/0.8 ML SYRINGE SUBCUT ONE (14:29)
[2020-08-29] MEDS ORDERED: MORPHINE 2 MG/1 ML SYRINGE ONE (14:29)
[2020-08-29 14:32] LABS: Alanine Aminotransferase 14 U/L (16-61); Albumin 3.3 G/DL (3.4-5.0); Alkaline Phosphatase 59 U/L (45-117); Aspartate Amino Transferase 7 U/L (0-37); Bilirubin,Total < 0.39 MG/DL (0.20-1.00); Blood Urea Nitrogen 16 MG/DL (7-18); Calcium 8.4 MG/DL (8.5-10.1); Carbon Dioxide 26 MMOL/L (21-32); Estimated Glom Filtration Rate 106 ML/MIN; Glucose 93 MG/DL (74-106); Osmolality,Calculated 273.8 MOS/KG (273-304); Potassium 4.1 MMOL/L (3.5-5.1); Sodium 137 MMOL/L (136-145); Total Protein 6.9 G/DL (6.4-8.2)
[2020-08-29 14:45] LABS: Eosinophils 7 % (0-10); Lymphocytes 52 % (20-55); Segmented Neutrophils 28 % (50-85); Total Cells Counted 100
[2020-08-29 14:46] LABS: Hypochromasia Slight; Platelet Estimate Normal
[2020-08-29] MEDS ORDERED: guaiFENesin/DM ER 600-30 MG TABLET PO PRN (15:43)
[2020-08-29] MEDS ORDERED: MAGNESIUM SULF RIDER 4 GM/100 ML PREMIX IV PRN (15:43)
[2020-08-29] MEDS ORDERED: diphenhydrAMINE CAP 25 MG CAPSULE PO PRN (15:43)
[2020-08-29] MEDS ORDERED: ZALEPLON 5 MG CAPSULE PO PRN (15:43)
[2020-08-29] MEDS ORDERED: ONDANSETRON 4 MG/2 ML VIAL IV PRN (15:43)
[2020-08-29] MEDS ORDERED: POTASSIUM CHLORIDE 20 MEQ TABLET PO PRN (15:43)
[2020-08-29] MEDS ORDERED: ACETAMINOPHEN 325 MG TABLET PO PRN (15:43)
[2020-08-29] MEDS ORDERED: ALUMINUM/MAGNES/SIMETH MAX STR 30 ML UDCUP PO PRN (15:43)
[2020-08-29] MEDS ORDERED: DOCUSATE SODIUM 100 MG CAPSULE PO PRN (15:43)
[2020-08-29] MEDS ORDERED: hydrALAZINE 20 MG/1 ML VIAL IV PRN (15:43)
[2020-08-29] MEDS ORDERED: MAGNESIUM SULF RIDER 2 GM/50 ML PREMIX IV PRN (15:43)
[2020-08-29] MEDS ORDERED: PANTOPRAZOLE 40 MG VIAL IV STA (15:45)
[2020-08-29] MEDS ORDERED: BUDESONIDE/FORMOTEROL 160-4.5 INHALER 6 GM INH PRN (17:18)
[2020-08-29] MEDS ORDERED: NITROGLYCERIN SL 0.4 MG TABLET SL PRN (17:18)
[2020-08-29] MEDS ORDERED: FLUTICASONE 50 MCG NASAL SPRAY 16 GM BOTTLE BOTH NARES PRN (17:18)
[2020-08-29] MEDS ORDERED: MECLIZINE 25 MG TABLET PO PRN (17:18)
[2020-08-29] MEDS ORDERED: ALBUTEROL 2.5 MG/3 ML NEB RESP TX PRN (18:16)
[2020-08-29] MEDS: ALBUTEROL/IPRATROPIUM 3 ML NEB RESP TX SCH (18:39)
[2020-08-29] MEDS: MORPHINE 2 MG/1 ML SYRINGE IV PRN (20:00)
[2020-08-29] MEDS ORDERED: ATORVASTATIN 40 MG TABLET PO SCH (21:00)
[2020-08-29] MEDS: INSULIN LISPRO 100 UNIT/ML SUBCUT SCH (21:56)
[2020-08-29] MEDS: FUROSEMIDE 40 MG TABLET PO SCH (23:05)
[2020-08-29] MEDS: PANTOPRAZOLE 40 MG TABLET PO SCH (23:05)
[2020-08-29] MEDS: allopurinoL 100 MG TABLET PO SCH (23:05)
[2020-08-29] MEDS: LUBIPROSTONE 24 MCG CAPSULE PO SCH (23:05)
[2020-08-29] MEDS: carvediloL 6.25 MG TABLET PO SCH (23:05)
[2020-08-29] MEDS: GABAPENTIN 100 MG CAPSULE PO SCH (23:06)
[2020-08-30] MEDS: ALBUTEROL/IPRATROPIUM 3 ML NEB RESP TX SCH ×2 (00:40→07:30)
[2020-08-30] MEDS: MORPHINE 2 MG/1 ML SYRINGE IV PRN ×2 (00:42→08:25)
[2020-08-30 04:23] LABS: Basophils % 0.6 % (0.0-0.8); Eosinophils # 0.3 10*3/uL (0.0-0.87); Eosinophils % 7.3 % (0.00-10.9); Hematocrit 38.9 VOL% (42.0-52.0); Hemoglobin 12.6 GM/DL (14.0-18.0); Immature Granulocytes % 0.2 %; Immature Granulocytes Absolute 0.01 #; Lymphocytes # 2.6 10*3/uL (1.4-4.0); Lymphocytes % 55.3 % (21.2-54.2); Mean Corpuscular HGB Conc 32.4 GM/DL (32-36); Mean Corpuscular Volume 90.9 FL (87-102); Mean Platelet Volume 11.9 FL (9.6-12.0); Monocytes % 14.9 % (1.7-12.7); Neutrophils % 21.7 % (38.7-73.9); Platelet Count 197 T/CUMM (130-400); Red Blood Count 4.28 MC/CUMM (3.8-5.5); Red Cell Distribution Width 15.2 % (9.3-17.3); White Blood Count 4.6 T/CUMM (4-12)
[2020-08-30 04:51] LABS: Eosinophils 10 % (0-10); Hypochromasia 1+; Lymphocytes 59 % (20-55); Microcytosis 1+; Platelet Estimate Adequate; Segmented Neutrophils 15 % (50-85); Total Cells Counted 100
[2020-08-30 04:52] LABS: Atypical Lymphocytes Few
[2020-08-30 05:10] LABS: Calcium 8.5 MG/DL (8.5-10.1); Osmolality,Calculated 277.5 MOS/KG (273-304); Potassium 4.8 MMOL/L (3.5-5.1); Risk Ratio 2.79; Thyroid Stimulating Hormone 2.59 uIU/ml (0.358-3.74)
[2020-08-30] MEDS: INSULIN LISPRO 100 UNIT/ML SUBCUT SCH (07:46)
[2020-08-30] MEDS: FUROSEMIDE 40 MG TABLET PO SCH (08:26)
[2020-08-30] MEDS: PANTOPRAZOLE 40 MG TABLET PO SCH (08:26)
[2020-08-30] MEDS: allopurinoL 100 MG TABLET PO SCH (08:26)
[2020-08-30] MEDS: GABAPENTIN 100 MG CAPSULE PO SCH (08:27)
[2020-08-30] MEDS: carvediloL 6.25 MG TABLET PO SCH (08:33)
[2020-08-30] MEDS: LUBIPROSTONE 24 MCG CAPSULE PO SCH (08:33)
[2020-08-30] MEDS ORDERED: PANTOPRAZOLE 40 MG TABLET PO SCH (09:00)
[2020-08-30] MEDS ORDERED: ISOSORBIDE MONONITRATE 60 MG TABLET PO SCH (09:00)
[2020-08-30] MEDS ORDERED: DILTIAZEM CD 180 MG CAPSULE PO SCH (09:00)
[2020-08-30] MEDS ORDERED: ASPIRIN EC 81 MG TABLET PO SCH (09:00)
[2020-08-30] MEDS ORDERED: lisinopriL 10 MG TABLET PO SCH (09:00)
[2020-08-30 12:04] VITALS: BP 113/65
[2020-08-30] MEDS ORDERED: RANOLAZINE 500 MG TABLET PO SCH (12:30)
[2020-09-27] MEDS ORDERED: CYANOCOBALAMIN 1000 MCG/1 ML VIAL IM SCH (17:30)
== END 2020-08-30 13:52 | disposition home or self-care (01) ==
LOC: EDUNIT# → EDBD → N.EDINP 12:34 → N.ED 12:34 → N.TELEN 18:09
PROVIDERS: ADMIT Internal Medicine Cardiovascular Disease; ATTEND Internal Medicine Cardiovascular Disease

== ENCOUNTER 2020-09-11 15:56 | Observation (INO) ==
[2020-09-11] MEDS ORDERED: NITROGLYCERIN 2% OINT 1 INCH/GM PACK TOP STA (16:27)
[2020-09-11] MEDS ORDERED: MORPHINE 2 MG/1 ML SYRINGE IV STA ×2 (16:27→17:34)
[2020-09-11] MEDS ORDERED: ONDANSETRON 4 MG/2 ML VIAL ONE (16:40)
[2020-09-11 17:02] LABS: Basophils % 0.5 % (0.0-0.8); Eosinophils # 0.3 10*3/uL (0.0-0.87); Hemoglobin 12.6 GM/DL (14.0-18.0); Immature Granulocytes % 0.2 %; Immature Granulocytes Absolute 0.01 #; Lymphocytes % 55.1 % (21.2-54.2); Mean Corpuscular HGB Conc 31.5 GM/DL (32-36); Mean Corpuscular Volume 90.9 FL (87-102); Mean Platelet Volume 12.5 FL (9.6-12.0); Neutrophils % 25.2 % (38.7-73.9); Platelet Count 193 T/CUMM (130-400); Red Cell Distribution Width 15.4 % (9.3-17.3); White Blood Count 5.5 T/CUMM (4-12)
[2020-09-11 17:12] LABS: PT Patient Result 11.1 SECS (10.5-12.0)
[2020-09-11] MEDS ORDERED: ENOXAPARIN 30 MG/0.3 ML SYRINGE SUBCUT STA (17:24)
[2020-09-11] MEDS ORDERED: ENOXAPARIN 120 MG/0.8 ML SYRINGE SUBCUT ONE (17:25)
[2020-09-11 17:31] LABS: Anisocytosis Slight; Eosinophils 7 % (0-10); Hypochromasia Slight; Lymphocytes 47 % (20-55); Platelet Estimate Adequate; Segmented Neutrophils 28 % (50-85); Total Cells Counted 100
[2020-09-11 17:37] LABS: Alanine Aminotransferase 18 U/L (16-61); Albumin 3.6 G/DL (3.4-5.0); Alkaline Phosphatase 63 U/L (45-117); Aspartate Amino Transferase 12 U/L (0-37); Bilirubin,Total < 0.39 MG/DL (0.20-1.00); Blood Urea Nitrogen 13 MG/DL (7-18); Calcium 8.3 MG/DL (8.5-10.1); Carbon Dioxide 24 MMOL/L (21-32); Estimated Glom Filtration Rate 117 ML/MIN; Glucose 97 MG/DL (74-106); Osmolality,Calculated 276.5 MOS/KG (273-304); Potassium 3.9 MMOL/L (3.5-5.1); Sodium 139 MMOL/L (136-145)
[2020-09-11] MEDS ORDERED: MAGNESIUM SULF RIDER 4 GM/100 ML PREMIX IV PRN (17:55)
[2020-09-11] MEDS ORDERED: MAGNESIUM SULF RIDER 2 GM/50 ML PREMIX IV PRN (17:55)
[2020-09-11] MEDS ORDERED: ASPIRIN 325 MG TABLET PO STA (17:55)
[2020-09-11] MEDS ORDERED: LEVALBUTEROL 1.25 MG/3 ML NEB RESP TX PRN (17:58)
[2020-09-11] MEDS ORDERED: FLUTICASONE 50 MCG NASAL SPRAY 16 GM BOTTLE BOTH NARES PRN (17:58)
[2020-09-11] MEDS ORDERED: BUDESONIDE/FORMOTEROL 160-4.5 INHALER 6 GM INH PRN (17:58)
[2020-09-11] MEDS ORDERED: MORPHINE 2 MG/1 ML SYRINGE IV PRN (18:04)
[2020-09-11] MEDS ORDERED: ALBUTEROL 2.5 MG/3 ML NEB RESP TX PRN (18:22)
[2020-09-11] MEDS ORDERED: ATORVASTATIN 40 MG TABLET PO SCH (21:00)
[2020-09-11] MEDS: PANTOPRAZOLE 40 MG TABLET PO SCH (21:24)
[2020-09-11] MEDS: GABAPENTIN 100 MG CAPSULE PO SCH (21:24)
[2020-09-11] MEDS: RANOLAZINE 500 MG TABLET PO SCH (21:24)
[2020-09-11] MEDS: allopurinoL 100 MG TABLET PO SCH (21:28)
[2020-09-12 00:46] LABS: Basophils % 0.7 % (0.0-0.8); Eosinophils # 0.4 10*3/uL (0.0-0.87); Eosinophils % 6.7 % (0.00-10.9); Hematocrit 40.3 VOL% (42.0-52.0); Hemoglobin 12.5 GM/DL (14.0-18.0); Immature Granulocytes % 0.2 %; Immature Granulocytes Absolute 0.01 #; Lymphocytes # 3.4 10*3/uL (1.4-4.0); Lymphocytes % 56.4 % (21.2-54.2); Mean Corpuscular Volume 92.4 FL (87-102); Mean Platelet Volume 11.8 FL (9.6-12.0); Monocytes % 11.9 % (1.7-12.7); Neutrophils % 24.1 % (38.7-73.9); Platelet Count 182 T/CUMM (130-400); Red Blood Count 4.36 MC/CUMM (3.8-5.5); Red Cell Distribution Width 15.3 % (9.3-17.3)
[2020-09-12] MEDS ORDERED: MORPHINE 2 MG/1 ML SYRINGE IV ONE (01:11)
[2020-09-12 01:12] LABS: Albumin 3.4 G/DL (3.4-5.0); Bilirubin,Total 0.4 MG/DL (0.20-1.00); Calcium 8.5 MG/DL (8.5-10.1); Osmolality,Calculated 279.4 MOS/KG (273-304); Potassium 4.7 MMOL/L (3.5-5.1); Total Protein 6.6 G/DL (6.4-8.2)
[2020-09-12 01:16] LABS: Eosinophils 5 % (0-10); Lymphocytes 59 % (20-55); Segmented Neutrophils 25 % (50-85); Total Cells Counted 100
[2020-09-12 01:19] LABS: Atypical Lymphocytes Few; Reactive Lymphocytes 2+
[2020-09-12 01:20] LABS: Hypochromasia 1+; Ovalocytes 1+; Platelet Estimate Normal
[2020-09-12] MEDS ORDERED: ENOXAPARIN 120 MG/0.8 ML SYRINGE SUBCUT SCH (05:30)
[2020-09-12] MEDS ORDERED: NITROGLYCERIN 2% OINT 1 INCH/GM PACK TOP ONE (06:21)
[2020-09-12] MEDS ORDERED: metFORMIN 500 MG TABLET PO SCH (08:00)
[2020-09-12] MEDS ORDERED: KETOROLAC 30 MG/1 ML VIAL IV ONE (08:17)
[2020-09-12] MEDS ORDERED: CYCLOBENZAPRINE 10 MG TABLET PO PRN (08:17)
[2020-09-12] MEDS ORDERED: DILTIAZEM CD 180 MG CAPSULE PO SCH (09:00)
[2020-09-12] MEDS ORDERED: ISOSORBIDE MONONITRATE 60 MG TABLET PO SCH (09:00)
[2020-09-12] MEDS ORDERED: TICAGRELOR 90 MG TABLET PO SCH (09:00)
[2020-09-12] MEDS ORDERED: ASPIRIN EC 81 MG TABLET PO SCH (09:00)
[2020-09-12] MEDS: RANOLAZINE 500 MG TABLET PO SCH (09:20)
[2020-09-12] MEDS: PANTOPRAZOLE 40 MG TABLET PO SCH (09:20)
[2020-09-12] MEDS: allopurinoL 100 MG TABLET PO SCH (09:21)
[2020-09-12] MEDS: GABAPENTIN 100 MG CAPSULE PO SCH (09:21)
[2020-09-12 11:02] VITALS: BP 119/83
== END 2020-09-12 13:26 | disposition home or self-care (01) ==
LOC: EDUNIT# → EDBD → N.EDINP 15:56 → N.ED 15:56 → N.TELEN 19:07
PROVIDERS: ADMIT Internal Medicine Cardiovascular Disease; ATTEND Internal Medicine Cardiovascular Disease

== ENCOUNTER 2021-01-02 13:34 | Observation (INO) ==
[2021-01-02] MEDS ORDERED: ENOXAPARIN 100 MG/ML SYRINGE SUBCUT STA (13:49)
[2021-01-02] MEDS ORDERED: NITROGLYCERIN 2% OINT 1 INCH/GM PACK TOP STA (13:49)
[2021-01-02 14:12] LABS: Basophils % 0.4 % (0.0-0.8); Eosinophils # 0.2 10*3/uL (0.0-0.87); Eosinophils % 4.3 % (0.00-10.9); Hematocrit 41.5 VOL% (42.0-52.0); Hemoglobin 13.4 GM/DL (14.0-18.0); Immature Granulocytes % 0.2 %; Immature Granulocytes Absolute 0.01 #; Lymphocytes # 2.8 10*3/uL (1.4-4.0); Lymphocytes % 56.2 % (21.2-54.2); Mean Corpuscular HGB Conc 32.3 GM/DL (32-36); Mean Corpuscular Volume 88.5 FL (87-102); Mean Platelet Volume 11.4 FL (9.6-12.0); Monocytes % 13.6 % (1.7-12.7); Neutrophils % 25.3 % (38.7-73.9); Platelet Count 146 T/CUMM (130-400); Red Blood Count 4.69 MC/CUMM (3.8-5.5); White Blood Count 4.9 T/CUMM (4-12)
[2021-01-02 14:21] LABS: PT Patient Result 10.9 SECS (10.5-12.0)
[2021-01-02] MEDS ORDERED: MORPHINE 2 MG/1 ML SYRINGE IV STA (14:28)
[2021-01-02 14:31] LABS: Albumin 3.6 G/DL (3.4-5.0); Bilirubin,Total 0.4 MG/DL (0.20-1.00); Calcium 8.5 MG/DL (8.5-10.1); Osmolality,Calculated 270.8 MOS/KG (273-304); Potassium 3.4 MMOL/L (3.5-5.1)
[2021-01-02] MEDS ORDERED: ZALEPLON 5 MG CAPSULE PO PRN (15:14)
[2021-01-02] MEDS ORDERED: ONDANSETRON 4 MG/2 ML VIAL IV PRN (15:14)
[2021-01-02] MEDS ORDERED: GLUCAGON 1 MG VIAL IM PRN (15:14)
[2021-01-02] MEDS ORDERED: ACETAMINOPHEN 325 MG TABLET PO PRN (15:14)
[2021-01-02] MEDS ORDERED: DEXTROSE 50% 25 GM/50 ML VIAL IV PRN (15:14)
[2021-01-02] MEDS ORDERED: DEXTROSE 50% 25 GM/50 ML SYRINGE IV PRN (15:14)
[2021-01-02 15:21] LABS: Atypical Lymphocytes Few; Eosinophils 2 % (0-10); Hypochromasia Slight; Lymphocytes 67 % (20-55); Platelet Estimate Adequate; Polychromasia Slight; Segmented Neutrophils 22 % (50-85); Total Cells Counted 100
[2021-01-02] MEDS ORDERED: POTASSIUM CHLORIDE 20 MEQ TABLET PO PRN (15:23)
[2021-01-02] MEDS: MORPHINE 2 MG/1 ML SYRINGE IV PRN (20:28)
[2021-01-02] MEDS: NITROGLYCERIN 2% OINT 1 INCH/GM PACK TOP SCH (20:29)
[2021-01-02] MEDS ORDERED: PNEUMOCOCCAL VACCINE (13 VALENT) 0.5 ML SYRINGE IM ONE (21:00)
[2021-01-02] MEDS ORDERED: INFLUENZA VIRUS VACCINE 0.5 ML SYRINGE IM ONE (21:00)
[2021-01-03] MEDS: NITROGLYCERIN 2% OINT 1 INCH/GM PACK TOP SCH ×3 (01:44→12:03)
[2021-01-03] MEDS: MORPHINE 2 MG/1 ML SYRINGE IV PRN ×2 (01:44→06:24)
[2021-01-03] MEDS ORDERED: ENOXAPARIN 120 MG/0.8 ML SYRINGE SUBCUT SCH (02:00)
[2021-01-03] MEDS ORDERED: BUDESONIDE/FORMOTEROL 160-4.5 INHALER 6 GM INH PRN (03:14)
[2021-01-03] MEDS ORDERED: FLUTICASONE 50 MCG NASAL SPRAY 16 GM BOTTLE BOTH NARES PRN (03:14)
[2021-01-03] MEDS ORDERED: CYCLOBENZAPRINE 10 MG TABLET PO PRN (03:14)
[2021-01-03] MEDS ORDERED: MECLIZINE 25 MG TABLET PO PRN (03:14)
[2021-01-03] MEDS ORDERED: NITROGLYCERIN SL 0.4 MG TABLET SL PRN (03:14)
[2021-01-03 05:14] LABS: Bilirubin,Total 1.1 MG/DL (0.20-1.00); Calcium 8.4 MG/DL (8.5-10.1); Osmolality,Calculated 261.5 MOS/KG (273-304); Potassium 3.9 MMOL/L (3.5-5.1); Risk Ratio 2.38; Total Protein 7.2 G/DL (6.4-8.2); VLDL Cholesterol 11.4 MG/DL
[2021-01-03 05:24] LABS: Basophils % 0.4 % (0.0-0.8); Eosinophils # 0.2 10*3/uL (0.0-0.87); Eosinophils % 4.3 % (0.00-10.9); Hematocrit 41.1 VOL% (42.0-52.0); Hemoglobin 13.4 GM/DL (14.0-18.0); Immature Granulocytes % 0.4 %; Immature Granulocytes Absolute 0.02 #; Lymphocytes # 2.9 10*3/uL (1.4-4.0); Lymphocytes % 51.4 % (21.2-54.2); Mean Corpuscular HGB Conc 32.6 GM/DL (32-36); Mean Platelet Volume 12.8 FL (9.6-12.0); Neutrophils % 32.5 % (38.7-73.9); Platelet Count 162 T/CUMM (130-400); Red Blood Count 4.67 MC/CUMM (3.8-5.5); Red Cell Distribution Width 15.2 % (9.3-17.3); White Blood Count 5.6 T/CUMM (4-12)
[2021-01-03 05:32] LABS: Eosinophils 9 % (0-10); Lymphocytes 55 % (20-55); Platelet Estimate Normal; Segmented Neutrophils 29 % (50-85); Total Cells Counted 100
[2021-01-03] MEDS ORDERED: ALBUTEROL 2.5 MG/3 ML NEB RESP TX PRN (07:00)
[2021-01-03] MEDS ORDERED: DILTIAZEM CD 180 MG CAPSULE PO SCH (09:00)
[2021-01-03] MEDS ORDERED: lisinopriL 10 MG TABLET PO SCH (09:00)
[2021-01-03] MEDS ORDERED: ISOSORBIDE MONONITRATE 30 MG TABLET PO SCH (09:00)
[2021-01-03] MEDS ORDERED: LUBIPROSTONE 24 MCG CAPSULE PO SCH (09:00)
[2021-01-03] MEDS ORDERED: TICAGRELOR 90 MG TABLET PO SCH (09:00)
[2021-01-03] MEDS ORDERED: ASPIRIN EC 81 MG TABLET PO SCH (09:00)
[2021-01-03] MEDS ORDERED: RANOLAZINE 500 MG TABLET PO SCH (09:00)
[2021-01-03] MEDS ORDERED: FUROSEMIDE 40 MG TABLET PO SCH (09:00)
[2021-01-03] MEDS ORDERED: GABAPENTIN 100 MG CAPSULE PO SCH ×2 (09:00→15:00)
[2021-01-03] MEDS ORDERED: PANTOPRAZOLE 40 MG TABLET PO SCH (09:00)
[2021-01-03] MEDS ORDERED: allopurinoL 100 MG TABLET PO SCH (09:00)
[2021-01-03] MEDS ORDERED: AMITRIPTYLINE 25 MG TABLET PO SCH (10:27)
[2021-01-03 12:31] VITALS: BP 111/68
[2021-01-03] MEDS ORDERED: ATORVASTATIN 40 MG TABLET PO SCH (21:00)
[2021-01-27] MEDS ORDERED: CYANOCOBALAMIN 1000 MCG/1 ML VIAL IM SCH (09:00)
== END 2021-01-03 14:52 | disposition home or self-care (01) ==
LOC: EDBD → SUATTDRO → EDUNIT# → N.TELEN 13:34 → N.ED 13:34 → SUATTDRO 15:14 → N.TELEN 18:08
PROVIDERS: ADMIT Internal Medicine; ATTEND Internal Medicine

== ENCOUNTER 2021-05-30 14:07 | Inpatient (IN) ==
[2021-05-30] MEDS ORDERED: ASPIRIN 325 MG TABLET PO STA (14:34)
[2021-05-30] MEDS ORDERED: NITROGLYCERIN SL 0.4 MG TABLET SL PRN (14:34)
[2021-05-30] MEDS ORDERED: ENOXAPARIN 100 MG/ML SYRINGE SUBCUT STA (14:34)
[2021-05-30] MEDS ORDERED: MORPHINE 2 MG/1 ML SYRINGE IV STA (14:37)
[2021-05-30 14:46] LABS: Hemoglobin 13.7 GM/DL (14.0-18.0); Red Blood Count 4.81 MC/CUMM (3.8-5.5)
[2021-05-30 14:47] LABS: Basophils % 0.4 % (0.0-0.8); Eosinophils # 0.4 10*3/uL (0.0-0.87); Eosinophils % 7.2 % (0.00-10.9); Hematocrit 42.3 VOL% (42.0-52.0); Lymphocytes # 3.1 10*3/uL (1.4-4.0); Lymphocytes % 61.6 % (21.2-54.2); Mean Corpuscular HGB Conc 32.4 GM/DL (32-36); Mean Corpuscular Volume 87.9 FL (87-102); Mean Platelet Volume 12.2 FL (9.6-12.0); Monocytes # 0.5 10*3/uL (0.11-0.8); Monocytes % 9.6 % (1.7-12.7); Neutrophils % 21.2 % (38.7-73.9); Platelet Count 205 T/CUMM (130-400); Red Cell Distribution Width 15.9 % (9.3-17.3)
[2021-05-30 15:10] LABS: Calcium 8.7 MG/DL (8.5-10.1); Osmolality,Calculated 270.8 MOS/KG (273-304); Potassium 4.1 MMOL/L (3.5-5.1)
[2021-05-30 15:27] LABS: Eosinophils 6 % (0-10); Lymphocytes 62 % (20-55); Total Cells Counted 100
[2021-05-30 15:28] LABS: Platelet Estimate Adequate
[2021-05-30] MEDS ORDERED: ONDANSETRON 4 MG/2 ML VIAL IV PRN (16:32)
[2021-05-30] MEDS ORDERED: ACETAMINOPHEN 325 MG TABLET PO PRN (16:32)
[2021-05-30] MEDS ORDERED: DEXTROSE 50% 25 GM/50 ML VIAL IV PRN (16:32)
[2021-05-30] MEDS ORDERED: GLUCAGON 1 MG VIAL IM PRN ×2 (16:32)
[2021-05-30] MEDS ORDERED: DEXTROSE 10% 250 ML BAG IV PRN (16:41)
[2021-05-30] MEDS: MORPHINE 2 MG/1 ML SYRINGE IV PRN ×2 (19:29→23:54)
[2021-05-30] MEDS: TICAGRELOR 90 MG TABLET PO SCH (20:29)
[2021-05-30] MEDS: RANOLAZINE 500 MG TABLET PO SCH (20:29)
[2021-05-30] MEDS: ATORVASTATIN 40 MG TABLET PO SCH (20:30)
[2021-05-30] MEDS: INSULIN LISPRO 100 UNIT/ML SUBCUT SCH (20:34)
[2021-05-31] MEDS: MORPHINE 2 MG/1 ML SYRINGE IV PRN ×2 (04:05→13:47)
[2021-05-31 05:30] LABS: Basophils % 0.7 % (0.0-0.8); Eosinophils # 0.3 10*3/uL (0.0-0.87); Eosinophils % 6.7 % (0.00-10.9); Hematocrit 41.5 VOL% (42.0-52.0); Hemoglobin 13.2 GM/DL (14.0-18.0); Lymphocytes # 2.6 10*3/uL (1.4-4.0); Lymphocytes % 60.5 % (21.2-54.2); Mean Corpuscular HGB Conc 31.8 GM/DL (32-36); Mean Platelet Volume 11.5 FL (9.6-12.0); Monocytes # 0.6 10*3/uL (0.11-0.8); Monocytes % 13.7 % (1.7-12.7); Neutrophils % 18.4 % (38.7-73.9); Platelet Count 181 T/CUMM (130-400); Red Blood Count 4.61 MC/CUMM (3.8-5.5); Red Cell Distribution Width 16.1 % (9.3-17.3); White Blood Count 4.3 T/CUMM (4-12)
[2021-05-31 05:55] LABS: Eosinophils 5 % (0-10); Lymphocytes 63 % (20-55); Platelet Estimate Normal; Total Cells Counted 100
[2021-05-31 05:58] LABS: Albumin 3.4 G/DL (3.4-5.0); Bilirubin,Total 0.4 MG/DL (0.20-1.00); Calcium 8.8 MG/DL (8.5-10.1); Osmolality,Calculated 267.2 MOS/KG (273-304); Risk Ratio 2.88; Thyroid Stimulating Hormone 11.5 uIU/ml (0.358-3.74); Total Protein 7.5 G/DL (6.4-8.2); VLDL Cholesterol 24.6 MG/DL
[2021-05-31 07:53] LABS: Free T4 (Free Thyroxine) 1.15 NG/DL (0.76-1.46)
[2021-05-31] MEDS ORDERED: ENOXAPARIN 40 MG/0.4 ML SYRINGE SUBCUT SCH (09:00)
[2021-05-31] MEDS: RANOLAZINE 500 MG TABLET PO SCH ×2 (09:14→21:27)
[2021-05-31] MEDS: TICAGRELOR 90 MG TABLET PO SCH ×2 (09:14→21:27)
[2021-05-31] MEDS: ISOSORBIDE MONONITRATE 30 MG TABLET PO SCH (09:14)
[2021-05-31] MEDS: DILTIAZEM CD 180 MG CAPSULE PO SCH (09:14)
[2021-05-31] MEDS: INSULIN LISPRO 100 UNIT/ML SUBCUT SCH ×4 (09:15→22:24)
[2021-05-31] MEDS: lisinopriL 10 MG TABLET PO SCH (09:15)
[2021-05-31] MEDS ORDERED: FLUTICASONE 50 MCG NASAL SPRAY 16 GM BOTTLE BOTH NARES PRN (10:05)
[2021-05-31] MEDS ORDERED: CYCLOBENZAPRINE 10 MG TABLET PO PRN (10:05)
[2021-05-31] MEDS ORDERED: LEVALBUTEROL 1.25 MG/3 ML NEB RESP TX PRN (10:05)
[2021-05-31] MEDS: LUBIPROSTONE 24 MCG CAPSULE PO SCH ×2 (11:26→21:27)
[2021-05-31] MEDS: GABAPENTIN 100 MG CAPSULE PO SCH ×3 (11:26→21:27)
[2021-05-31] MEDS: ASPIRIN EC 81 MG TABLET PO SCH (11:26)
[2021-05-31] MEDS ORDERED: DEXTROSE 10% 250 ML BAG IV PRN (12:28)
[2021-05-31] MEDS: FUROSEMIDE 40 MG TABLET PO SCH ×2 (15:42→21:27)
[2021-05-31] MEDS: NITROGLYCERIN 2% OINT 1 INCH/GM PACK TOP SCH (17:35)
[2021-05-31] MEDS: ENOXAPARIN 120 MG/0.8 ML SYRINGE SUBCUT SCH (21:27)
[2021-05-31] MEDS: ATORVASTATIN 40 MG TABLET PO SCH (21:27)
[2021-06-01] MEDS: NITROGLYCERIN 2% OINT 1 INCH/GM PACK TOP SCH ×5 (00:40→23:46)
[2021-06-01] MEDS: MORPHINE 2 MG/1 ML SYRINGE IV PRN ×6 (03:46→23:46)
[2021-06-01] MEDS: LEVOTHYROXINE 25 MCG TABLET PO SCH (06:58)
[2021-06-01] MEDS: GABAPENTIN 100 MG CAPSULE PO SCH ×3 (08:45→20:48)
[2021-06-01] MEDS: FUROSEMIDE 40 MG TABLET PO SCH (08:45)
[2021-06-01] MEDS: RANOLAZINE 500 MG TABLET PO SCH ×2 (08:45→20:48)
[2021-06-01] MEDS: ASPIRIN EC 81 MG TABLET PO SCH (08:46)
[2021-06-01] MEDS: DILTIAZEM CD 180 MG CAPSULE PO SCH (08:46)
[2021-06-01] MEDS: TICAGRELOR 90 MG TABLET PO SCH ×2 (08:46→20:48)
[2021-06-01] MEDS: LUBIPROSTONE 24 MCG CAPSULE PO SCH ×2 (08:46→20:51)
[2021-06-01] MEDS: lisinopriL 10 MG TABLET PO SCH (08:46)
[2021-06-01] MEDS: PANTOPRAZOLE 40 MG TABLET PO SCH (08:46)
[2021-06-01] MEDS: ISOSORBIDE MONONITRATE 30 MG TABLET PO SCH (08:47)
[2021-06-01] MEDS: ENOXAPARIN 120 MG/0.8 ML SYRINGE SUBCUT SCH ×2 (08:47→20:49)
[2021-06-01 08:50] LABS: Basophils % 0.6 % (0.0-0.8); Eosinophils # 0.5 10*3/uL (0.0-0.87); Eosinophils % 9.2 % (0.00-10.9); Hemoglobin 12.3 GM/DL (14.0-18.0); Lymphocytes # 2.7 10*3/uL (1.4-4.0); Lymphocytes % 54.6 % (21.2-54.2); Mean Corpuscular HGB Conc 32.4 GM/DL (32-36); Mean Corpuscular Volume 89.4 FL (87-102); Monocytes # 0.6 10*3/uL (0.11-0.8); Monocytes % 11.4 % (1.7-12.7); Neutrophils % 24.2 % (38.7-73.9); Platelet Count 200 T/CUMM (130-400); Red Blood Count 4.25 MC/CUMM (3.8-5.5); Red Cell Distribution Width 15.9 % (9.3-17.3); White Blood Count 4.9 T/CUMM (4-12)
[2021-06-01] MEDS: INSULIN LISPRO 100 UNIT/ML SUBCUT SCH ×4 (08:55→21:31)
[2021-06-01 09:06] LABS: Calcium 8.5 MG/DL (8.5-10.1); Osmolality,Calculated 266.5 MOS/KG (273-304); Potassium 4.1 MMOL/L (3.5-5.1)
[2021-06-01 09:13] LABS: Atypical Lymphocytes Few; Band Neutrophils 1 % (0-10); Eosinophils 9 % (0-10); Lymphocytes 57 % (20-55); Total Cells Counted 100
[2021-06-01 09:14] LABS: Hypochromia 1+; Microcytosis 1+; Ovalocytes Slight; Platelet Estimate Normal
[2021-06-01] MEDS: ATORVASTATIN 40 MG TABLET PO SCH (20:48)
[2021-06-01] MEDS ORDERED: POTASSIUM CHLORIDE RIDER 10 MEQ/100 ML PREMIX IV PRN (21:00)
[2021-06-01] MEDS ORDERED: MAGNESIUM SULF RIDER 2 GM/50 ML PREMIX IV PRN (21:00)
[2021-06-01] MEDS: SODIUM CHLORIDE 0.9% 1,000 ML IV SCH (22:07)
[2021-06-02] MEDS: NITROGLYCERIN 2% OINT 1 INCH/GM PACK TOP SCH (05:18)
[2021-06-02] MEDS: MORPHINE 2 MG/1 ML SYRINGE IV PRN ×2 (05:23→10:29)
[2021-06-02 06:14] LABS: Basophils % 0.4 % (0.0-0.8); Eosinophils # 0.4 10*3/uL (0.0-0.87); Eosinophils % 8.2 % (0.00-10.9); Hemoglobin 11.8 GM/DL (14.0-18.0); Immature Granulocytes % 0.2 %; Immature Granulocytes Absolute 0.01 #; Lymphocytes # 2.8 10*3/uL (1.4-4.0); Lymphocytes % 56.4 % (21.2-54.2); Mean Corpuscular HGB Conc 31.9 GM/DL (32-36); Mean Corpuscular Volume 89.4 FL (87-102); Mean Platelet Volume 12.4 FL (9.6-12.0); Monocytes # 0.6 10*3/uL (0.11-0.8); Monocytes % 12.7 % (1.7-12.7); Neutrophils % 22.1 % (38.7-73.9); Platelet Count 179 T/CUMM (130-400); Red Blood Count 4.14 MC/CUMM (3.8-5.5); Red Cell Distribution Width 15.8 % (9.3-17.3); White Blood Count 4.9 T/CUMM (4-12)
[2021-06-02] MEDS ORDERED: DIAZEPAM 5 MG TABLET PO ONE (06:30)
[2021-06-02 06:35] LABS: Calcium 8.2 MG/DL (8.5-10.1); Osmolality,Calculated 275.7 MOS/KG (273-304); Potassium 4.1 MMOL/L (3.5-5.1)
[2021-06-02 06:38] LABS: Atypical Lymphocytes Few; Eosinophils 6 % (0-10); Lymphocytes 50 % (20-55); Platelet Estimate Adequate; Total Cells Counted 100
[2021-06-02] MEDS: SODIUM CHLORIDE 0.9% 1,000 ML IV SCH (06:57)
[2021-06-02] MEDS: LEVOTHYROXINE 25 MCG TABLET PO SCH (06:57)
[2021-06-02] MEDS: INSULIN LISPRO 100 UNIT/ML SUBCUT SCH ×2 (08:02→13:06)
[2021-06-02] MEDS: GABAPENTIN 100 MG CAPSULE PO SCH (10:24)
[2021-06-02] MEDS: PANTOPRAZOLE 40 MG TABLET PO SCH (10:24)
[2021-06-02] MEDS: ASPIRIN EC 81 MG TABLET PO SCH (10:24)
[2021-06-02] MEDS: LUBIPROSTONE 24 MCG CAPSULE PO SCH (10:24)
[2021-06-02] MEDS: RANOLAZINE 500 MG TABLET PO SCH (10:24)
[2021-06-02] MEDS: TICAGRELOR 90 MG TABLET PO SCH (10:25)
[2021-06-02] MEDS: ISOSORBIDE MONONITRATE 30 MG TABLET PO SCH (10:25)
[2021-06-02] MEDS: DILTIAZEM CD 180 MG CAPSULE PO SCH (10:25)
[2021-06-02] MEDS: ENOXAPARIN 120 MG/0.8 ML SYRINGE SUBCUT SCH (11:31)
[2021-06-02 12:12] VITALS: BP 116/74
== END 2021-06-02 13:43 | disposition home or self-care (01) | DRG 198 ==
LOC: EDUNIT# → EDBD → N.EDINP 14:07 → N.ED 14:07 → SUATTDRO 16:52 → N.EDINP 18:23 → N.TELES 18:33
PROVIDERS: ADMIT Emergency Medicine; ATTEND Internal Medicine

== ENCOUNTER 2021-09-03 21:38 | Observation (INO) ==
[2021-09-03] MEDS ORDERED: ASPIRIN 325 MG TABLET PO STA (22:06)
[2021-09-03] MEDS ORDERED: NITROGLYCERIN 2% OINT 1 INCH/GM PACK TOP STA (22:06)
[2021-09-03] MEDS ORDERED: ONDANSETRON 4 MG/2 ML VIAL IV STA (22:06)
[2021-09-03] MEDS ORDERED: MORPHINE 2 MG/1 ML SYRINGE IV STA (22:06)
[2021-09-03] MEDS ORDERED: ENOXAPARIN 100 MG/ML SYRINGE SUBCUT STA (22:06)
[2021-09-03] MEDS ORDERED: ENOXAPARIN 120 MG/0.8 ML SYRINGE SUBCUT STA (22:09)
[2021-09-03 22:24] LABS: Basophils % 0.5 % (0.0-0.8); Eosinophils # 0.3 10*3/uL (0.0-0.87); Eosinophils % 5.8 % (0.00-10.9); Hematocrit 39.8 VOL% (42.0-52.0); Hemoglobin 12.9 GM/DL (14.0-18.0); Lymphocytes # 3.2 10*3/uL (1.4-4.0); Lymphocytes % 55.2 % (21.2-54.2); Mean Corpuscular HGB Conc 32.4 GM/DL (32-36); Mean Corpuscular Volume 89.2 FL (87-102); Mean Platelet Volume 12.2 FL (9.6-12.0); Monocytes # 0.8 10*3/uL (0.11-0.8); Monocytes % 13.1 % (1.7-12.7); Neutrophils % 25.4 % (38.7-73.9); Platelet Count 207 T/CUMM (130-400); Red Blood Count 4.46 MC/CUMM (3.8-5.5); Red Cell Distribution Width 15.3 % (9.3-17.3); White Blood Count 5.8 T/CUMM (4-12)
[2021-09-03 22:48] LABS: Albumin 3.5 G/DL (3.4-5.0); Bilirubin,Total 0.5 MG/DL (0.20-1.00); Calcium 9.3 MG/DL (8.5-10.1); Eosinophils 10 % (0-10); Lymphocytes 52 % (20-55); Osmolality,Calculated 277.4 MOS/KG (273-304); Platelet Estimate Adequate; Potassium 5.1 MMOL/L (3.5-5.1); Total Cells Counted 100; Total Protein 7.7 G/DL (6.4-8.2)
[2021-09-04] MEDS ORDERED: MORPHINE 2 MG/1 ML SYRINGE IV STA (00:26)
[2021-09-04] MEDS ORDERED: guaiFENesin/DM ER 600-30 MG TABLET PO PRN (00:39)
[2021-09-04] MEDS ORDERED: ZALEPLON 5 MG CAPSULE PO PRN (00:39)
[2021-09-04] MEDS ORDERED: ALBUTEROL/IPRATROPIUM 3 ML NEB RESP TX PRN (00:39)
[2021-09-04] MEDS ORDERED: ONDANSETRON 4 MG/2 ML VIAL IV PRN (00:39)
[2021-09-04] MEDS ORDERED: GLUCAGON 1 MG VIAL IM PRN (00:39)
[2021-09-04] MEDS ORDERED: hydrALAZINE 20 MG/1 ML VIAL IV PRN (00:39)
[2021-09-04] MEDS ORDERED: ACETAMINOPHEN 325 MG TABLET PO PRN (00:39)
[2021-09-04] MEDS ORDERED: NICOTINE 21 MG/24 HR PATCH TRANSDERM PRN (00:39)
[2021-09-04] MEDS ORDERED: FLUTICASONE 50 MCG NASAL SPRAY 16 GM BOTTLE BOTH NARES PRN (00:44)
[2021-09-04] MEDS ORDERED: BUDESONIDE/FORMOTEROL 160-4.5 INHALER 6 GM INH PRN (00:44)
[2021-09-04] MEDS ORDERED: CALCIUM CARBONATE CHEW 500 MG TABLET PO PRN (00:44)
[2021-09-04] MEDS ORDERED: LEVALBUTEROL 1.25 MG/3 ML NEB RESP TX PRN (00:44)
[2021-09-04] MEDS ORDERED: CYCLOBENZAPRINE 10 MG TABLET PO PRN (00:44)
[2021-09-04] MEDS ORDERED: NITROGLYCERIN SL 0.4 MG TABLET SL PRN (00:44)
[2021-09-04] MEDS ORDERED: DEXTROSE 10% 250 ML BAG IV PRN (00:46)
[2021-09-04] MEDS: MORPHINE 2 MG/1 ML SYRINGE IV PRN ×4 (03:51→20:15)
[2021-09-04 04:51] LABS: Basophils % 0.6 % (0.0-0.8); Eosinophils # 0.3 10*3/uL (0.0-0.87); Eosinophils % 4.8 % (0.00-10.9); Hematocrit 39.6 VOL% (42.0-52.0); Hemoglobin 12.6 GM/DL (14.0-18.0); Immature Granulocytes % 0.2 %; Immature Granulocytes Absolute 0.01 #; Lymphocytes % 55.6 % (21.2-54.2); Mean Corpuscular HGB Conc 31.8 GM/DL (32-36); Mean Corpuscular Volume 90.2 FL (87-102); Mean Platelet Volume 12.2 FL (9.6-12.0); Monocytes # 0.6 10*3/uL (0.11-0.8); Monocytes % 11.3 % (1.7-12.7); Neutrophils % 27.5 % (38.7-73.9); Platelet Count 196 T/CUMM (130-400); Red Blood Count 4.39 MC/CUMM (3.8-5.5); White Blood Count 5.4 T/CUMM (4-12)
[2021-09-04 05:15] LABS: Calcium 8.9 MG/DL (8.5-10.1); Osmolality,Calculated 284.8 MOS/KG (273-304); Potassium 4.3 MMOL/L (3.5-5.1)
[2021-09-04 05:21] LABS: Eosinophils 5 % (0-10); Lymphocytes 64 % (20-55); Platelet Estimate Normal; Reactive Lymphocytes 2+; Total Cells Counted 100
[2021-09-04] MEDS: LEVOTHYROXINE 25 MCG TABLET PO SCH (05:37)
[2021-09-04] MEDS: INSULIN LISPRO 100 UNIT/ML SUBCUT SCH ×4 (08:14→20:43)
[2021-09-04] MEDS ORDERED: ISOSORBIDE MONONITRATE 30 MG TABLET PO SCH (09:00)
[2021-09-04] MEDS: ASPIRIN EC 81 MG TABLET PO SCH (10:42)
[2021-09-04] MEDS: PANTOPRAZOLE 40 MG TABLET PO SCH (10:43)
[2021-09-04] MEDS: TICAGRELOR 90 MG TABLET PO SCH ×2 (10:43→20:15)
[2021-09-04] MEDS: lisinopriL 10 MG TABLET PO SCH (10:44)
[2021-09-04] MEDS: BISACODYL 5 MG TABLET PO SCH (10:44)
[2021-09-04] MEDS: RANOLAZINE 500 MG TABLET PO SCH ×2 (10:44→20:15)
[2021-09-04] MEDS: GABAPENTIN 100 MG CAPSULE PO SCH ×3 (10:44→20:15)
[2021-09-04] MEDS: OLOPATADINE 0.1% OPH SOLN 5 ML BOTTLE BOTH EYES SCH ×2 (10:53→20:15)
[2021-09-04] MEDS ORDERED: ISOSORBIDE MONONITRATE 30 MG TABLET PO ONE (13:30)
[2021-09-04] MEDS: ATORVASTATIN 40 MG TABLET PO SCH (20:15)
[2021-09-05] MEDS: MORPHINE 2 MG/1 ML SYRINGE IV PRN ×3 (02:33→21:37)
[2021-09-05] MEDS: LEVOTHYROXINE 25 MCG TABLET PO SCH (05:34)
[2021-09-05] MEDS: INSULIN LISPRO 100 UNIT/ML SUBCUT SCH ×4 (08:12→21:45)
[2021-09-05] MEDS: TICAGRELOR 90 MG TABLET PO SCH ×2 (09:48→21:37)
[2021-09-05] MEDS: ISOSORBIDE MONONITRATE 60 MG TABLET PO SCH (09:48)
[2021-09-05] MEDS: ASPIRIN EC 81 MG TABLET PO SCH (09:48)
[2021-09-05] MEDS: GABAPENTIN 100 MG CAPSULE PO SCH ×3 (09:48→21:37)
[2021-09-05] MEDS: PANTOPRAZOLE 40 MG TABLET PO SCH (09:48)
[2021-09-05] MEDS: BISACODYL 5 MG TABLET PO SCH (09:48)
[2021-09-05] MEDS: lisinopriL 10 MG TABLET PO SCH (09:48)
[2021-09-05] MEDS: RANOLAZINE 500 MG TABLET PO SCH ×2 (09:48→21:37)
[2021-09-05] MEDS: OLOPATADINE 0.1% OPH SOLN 5 ML BOTTLE BOTH EYES SCH ×2 (10:36→21:37)
[2021-09-05] MEDS ORDERED: MAGNESIUM SULF RIDER 2 GM/50 ML PREMIX IV PRN (12:11)
[2021-09-05] MEDS ORDERED: POTASSIUM CHLORIDE RIDER 10 MEQ/100 ML PREMIX IV PRN (12:11)
[2021-09-05] MEDS ORDERED: MORPHINE 2 MG/1 ML SYRINGE IV ONE (15:30)
[2021-09-05] MEDS ORDERED: HEPARIN/NACL 0.9% 2 UNITS/ML 2,000 UNIT/1,000 ML BAG IV ONE (16:41)
[2021-09-05] MEDS ORDERED: fentaNYL 100 MCG/2 ML VIAL ONE (16:49)
[2021-09-05] MEDS ORDERED: MIDAZOLAM 2 MG/2 ML VIAL ONE (16:49)
[2021-09-05] MEDS ORDERED: HEPARIN 5,000 UNIT/1 ML VIAL ONE (16:58)
[2021-09-05] MEDS ORDERED: NITROGLYCERIN DRIP 50 MG/250 ML BOTTLE IV ONE (16:59)
[2021-09-05] MEDS: ATORVASTATIN 40 MG TABLET PO SCH (21:37)
[2021-09-05] MEDS ORDERED: HYDROmorphone 1 MG/1 ML SYRINGE IV ONE (22:52)
[2021-09-06] MEDS: MORPHINE 2 MG/1 ML SYRINGE IV PRN ×4 (00:46→21:50)
[2021-09-06 05:59] LABS: Basophils % 0.4 % (0.0-0.8); Eosinophils # 0.3 10*3/uL (0.0-0.87); Eosinophils % 5.4 % (0.00-10.9); Hematocrit 36.2 VOL% (42.0-52.0); Hemoglobin 11.7 GM/DL (14.0-18.0); Immature Granulocytes % 0.4 %; Immature Granulocytes Absolute 0.02 #; Lymphocytes % 41.3 % (21.2-54.2); Mean Corpuscular HGB Conc 32.3 GM/DL (32-36); Mean Platelet Volume 12.2 FL (9.6-12.0); Monocytes # 0.6 10*3/uL (0.11-0.8); Monocytes % 12.4 % (1.7-12.7); Neutrophils % 40.1 % (38.7-73.9); Platelet Count 181 T/CUMM (130-400); Red Blood Count 4.02 MC/CUMM (3.8-5.5); Red Cell Distribution Width 15.1 % (9.3-17.3); White Blood Count 4.8 T/CUMM (4-12)
[2021-09-06 06:17] LABS: Calcium 8.5 MG/DL (8.5-10.1); Osmolality,Calculated 277.5 MOS/KG (273-304); Potassium 3.6 MMOL/L (3.5-5.1)
[2021-09-06] MEDS: LEVOTHYROXINE 25 MCG TABLET PO SCH (08:00)
[2021-09-06] MEDS: INSULIN LISPRO 100 UNIT/ML SUBCUT SCH ×4 (10:00→22:41)
[2021-09-06] MEDS: GABAPENTIN 100 MG CAPSULE PO SCH ×3 (10:01→20:52)
[2021-09-06] MEDS: ISOSORBIDE MONONITRATE 60 MG TABLET PO SCH (10:01)
[2021-09-06] MEDS: BISACODYL 5 MG TABLET PO SCH (10:01)
[2021-09-06] MEDS: RANOLAZINE 500 MG TABLET PO SCH ×2 (10:01→20:52)
[2021-09-06] MEDS: TICAGRELOR 90 MG TABLET PO SCH ×2 (10:02→20:52)
[2021-09-06] MEDS: lisinopriL 10 MG TABLET PO SCH (10:02)
[2021-09-06] MEDS: PANTOPRAZOLE 40 MG TABLET PO SCH (10:02)
[2021-09-06] MEDS: ASPIRIN EC 81 MG TABLET PO SCH (10:02)
[2021-09-06] MEDS: OLOPATADINE 0.1% OPH SOLN 5 ML BOTTLE BOTH EYES SCH (10:04)
[2021-09-06] MEDS: ATORVASTATIN 40 MG TABLET PO SCH (20:54)
[2021-09-06] MEDS ORDERED: methylPREDNISolone SOD SUC 125 MG/2 ML VIAL IV ONE (21:45)
[2021-09-07] MEDS: OLOPATADINE 0.1% OPH SOLN 5 ML BOTTLE BOTH EYES SCH ×2 (01:41→08:24)
[2021-09-07] MEDS: MORPHINE 2 MG/1 ML SYRINGE IV PRN ×2 (04:43→10:49)
[2021-09-07] MEDS: LEVOTHYROXINE 25 MCG TABLET PO SCH (07:20)
[2021-09-07] MEDS: RANOLAZINE 500 MG TABLET PO SCH (08:23)
[2021-09-07] MEDS: TICAGRELOR 90 MG TABLET PO SCH (08:24)
[2021-09-07] MEDS: ASPIRIN EC 81 MG TABLET PO SCH (08:24)
[2021-09-07] MEDS: BISACODYL 5 MG TABLET PO SCH (08:24)
[2021-09-07] MEDS: lisinopriL 10 MG TABLET PO SCH (08:24)
[2021-09-07] MEDS: ISOSORBIDE MONONITRATE 60 MG TABLET PO SCH (08:24)
[2021-09-07] MEDS: PANTOPRAZOLE 40 MG TABLET PO SCH (08:24)
[2021-09-07 09:08] VITALS: BP 153/81
[2021-09-07] MEDS: INSULIN LISPRO 100 UNIT/ML SUBCUT SCH ×2 (09:12→10:56)
[2021-09-07] MEDS: GABAPENTIN 100 MG CAPSULE PO SCH (09:24)
== END 2021-09-07 11:30 | disposition home or self-care (01) ==
LOC: EDBD → EDUNIT# → N.EDINP 21:38 → N.ED 21:38 → SUATTDRO 09-04 00:39 → N.TELES 09-04 01:37
PROVIDERS: ADMIT Family Medicine; ATTEND Internal Medicine
PROC: CLCCHCL (ICD-10-PCS; 2021-09-05 16:15)

== ENCOUNTER 2022-01-30 13:23 | Inpatient (IN) ==
[2022-01-30] MEDS ORDERED: MORPHINE 2 MG/1 ML SYRINGE IV STA (14:16)
[2022-01-30 14:24] LABS: Basophils % 0.8 % (0.0-0.8); Eosinophils # 0.2 10*3/uL (0.0-0.87); Eosinophils % 4.3 % (0.00-10.9); Hemoglobin 13.1 GM/DL (14.0-18.0); Lymphocytes # 3.3 10*3/uL (1.4-4.0); Mean Corpuscular HGB Conc 31.2 GM/DL (32-36); Mean Platelet Volume 12.6 FL (9.6-12.0); Monocytes # 0.5 10*3/uL (0.11-0.8); Monocytes % 10.1 % (1.7-12.7); Neutrophils % 23.8 % (38.7-73.9); Platelet Count 189 T/CUMM (130-400); Red Blood Count 4.47 MC/CUMM (3.8-5.5); Red Cell Distribution Width 15.2 % (9.3-17.3); White Blood Count 5.3 T/CUMM (4-12)
[2022-01-30 14:31] LABS: PT Patient Result 10.8 SECS (10.1-12.1); Partial Thromboplastin Time 30.7 SECS (23.7-32.9)
[2022-01-30 14:38] LABS: Alanine Aminotransferase 14 U/L (16-61); Albumin 3.6 G/DL (3.4-5.0); Alkaline Phosphatase 74 U/L (45-117); Amylase 131 U/L (25-115); Aspartate Amino Transferase 8 U/L (0-37); Bilirubin,Total < 0.39 MG/DL (0.20-1.00); Blood Urea Nitrogen 11 MG/DL (7-18); Calcium 8.4 MG/DL (8.5-10.1); Carbon Dioxide 27 MMOL/L (21-32); Chloride 107 MMOL/L (98-107); Glucose 94 MG/DL (74-106); Osmolality,Calculated 279.3 MOS/KG (273-304); Potassium 3.9 MMOL/L (3.5-5.1); Sodium 141 MMOL/L (136-145); Total Protein 7.2 G/DL (6.4-8.2)
[2022-01-30 15:02] LABS: Atypical Lymphocytes Few; Eosinophils 4 % (0-10); Hypochromia Slight; Lymphocytes 55 % (20-55); Ovalocytes Slight
[2022-01-30 15:03] LABS: Platelet Estimate Adequate; Total Cells Counted 100
[2022-01-30] MEDS ORDERED: ASPIRIN CHEW 81 MG TABLET PO STA (15:33)
[2022-01-30] MEDS ORDERED: ONDANSETRON 4 MG/2 ML VIAL IV PRN (15:33)
[2022-01-30] MEDS ORDERED: hydrALAZINE 20 MG/1 ML VIAL IV PRN (15:33)
[2022-01-30] MEDS ORDERED: ACETAMINOPHEN 325 MG TABLET PO PRN (15:33)
[2022-01-30] MEDS: ENOXAPARIN 40 MG/0.4 ML SYRINGE SUBCUT SCH (16:54)
[2022-01-30] MEDS: MORPHINE 2 MG/1 ML SYRINGE IV PRN ×2 (16:55→21:35)
[2022-01-30] MEDS: INSULIN LISPRO 100 UNIT/ML SUBCUT SCH ×2 (17:17→20:37)
[2022-01-31] MEDS: MORPHINE 2 MG/1 ML SYRINGE IV PRN ×4 (03:39→21:00)
[2022-01-31 05:44] LABS: Basophils % 0.8 % (0.0-0.8); Eosinophils # 0.2 10*3/uL (0.0-0.87); Eosinophils % 5.5 % (0.00-10.9); Hematocrit 38.2 VOL% (42.0-52.0); Hemoglobin 12.3 GM/DL (14.0-18.0); Lymphocytes # 2.3 10*3/uL (1.4-4.0); Lymphocytes % 58.6 % (21.2-54.2); Mean Corpuscular HGB Conc 32.2 GM/DL (32-36); Mean Corpuscular Volume 92.9 FL (87-102); Mean Platelet Volume 10.8 FL (9.6-12.0); Monocytes # 0.5 10*3/uL (0.11-0.8); Monocytes % 12.5 % (1.7-12.7); Neutrophils % 22.6 % (38.7-73.9); Platelet Count 213 T/CUMM (130-400); Red Blood Count 4.11 MC/CUMM (3.8-5.5); Red Cell Distribution Width 15.1 % (9.3-17.3)
[2022-01-31 06:10] LABS: Calcium 8.6 MG/DL (8.5-10.1); Potassium 3.9 MMOL/L (3.5-5.1); Risk Ratio 2.16; VLDL Cholesterol 17.4 MG/DL
[2022-01-31 06:14] LABS: Eosinophils 5 % (0-10); Lymphocytes 59 % (20-55); Platelet Estimate Normal; Total Cells Counted 100
[2022-01-31 06:15] LABS: Anisocytosis Slight; Atypical Lymphocytes Few; Burr Cells Few; Macrocytosis 1+; Ovalocytes Few; Target Cells Few
[2022-01-31] MEDS: INSULIN LISPRO 100 UNIT/ML SUBCUT SCH ×4 (08:17→20:59)
[2022-01-31] MEDS: PANTOPRAZOLE 40 MG TABLET PO SCH (09:04)
[2022-01-31] MEDS ORDERED: POTASSIUM CHLORIDE RIDER 10 MEQ/100 ML PREMIX IV PRN (14:14)
[2022-01-31] MEDS ORDERED: MAGNESIUM SULF RIDER 2 GM/50 ML PREMIX IV PRN (14:14)
[2022-01-31] MEDS ORDERED: DIAZEPAM 5 MG TABLET PO ONE (14:19)
[2022-01-31] MEDS ORDERED: HEPARIN/NACL 0.9% 2 UNITS/ML 2,000 UNIT/1,000 ML BAG IV ONE (14:37)
[2022-01-31] MEDS ORDERED: MIDAZOLAM 2 MG/2 ML VIAL ONE ×2 (15:03→15:26)
[2022-01-31] MEDS ORDERED: fentaNYL 100 MCG/2 ML VIAL ONE (15:03)
[2022-01-31] MEDS ORDERED: HYDROCORTISONE 100 MG VIAL ONE (15:18)
[2022-01-31] MEDS ORDERED: BIVALIRUDIN 250 MG VIAL IV ONE (15:39)
[2022-01-31] MEDS ORDERED: TICAGRELOR 90 MG TABLET ONE (16:05)
[2022-01-31] MEDS ORDERED: BUDESONIDE/FORMOTEROL 160-4.5 INHALER 6 GM INH PRN (16:13)
[2022-01-31] MEDS ORDERED: NITROGLYCERIN SL 0.4 MG TABLET SL PRN (16:13)
[2022-01-31] MEDS ORDERED: ALBUTEROL 2.5 MG/3 ML NEB RESP TX PRN (16:21)
[2022-01-31] MEDS: ENOXAPARIN 40 MG/0.4 ML SYRINGE SUBCUT SCH (17:51)
[2022-01-31] MEDS: SODIUM CHLORIDE 0.9% 1,000 ML IV SCH ×2 (18:40→20:05)
[2022-01-31] MEDS: GABAPENTIN 100 MG CAPSULE PO SCH (20:57)
[2022-01-31] MEDS: RANOLAZINE 500 MG TABLET PO SCH (20:58)
[2022-01-31] MEDS: TICAGRELOR 90 MG TABLET PO SCH (20:58)
[2022-01-31] MEDS ORDERED: ATORVASTATIN 40 MG TABLET PO SCH (21:00)
[2022-02-01] MEDS: MORPHINE 2 MG/1 ML SYRINGE IV PRN ×3 (01:45→15:00)
[2022-02-01 05:33] LABS: Basophils % 0.4 % (0.0-0.8); Eosinophils % 0.6 % (0.00-10.9); Hemoglobin 12.5 GM/DL (14.0-18.0); Immature Granulocytes % 0.2 %; Immature Granulocytes Absolute 0.01 #; Lymphocytes # 2.1 10*3/uL (1.4-4.0); Mean Corpuscular HGB Conc 32.9 GM/DL (32-36); Mean Corpuscular Volume 92.5 FL (87-102); Mean Platelet Volume 11.5 FL (9.6-12.0); Monocytes # 0.5 10*3/uL (0.11-0.8); Monocytes % 8.9 % (1.7-12.7); Neutrophils % 49.9 % (38.7-73.9); Platelet Count 221 T/CUMM (130-400); Red Blood Count 4.11 MC/CUMM (3.8-5.5); White Blood Count 5.3 T/CUMM (4-12)
[2022-02-01 05:47] LABS: Alanine Aminotransferase 12 U/L (16-61); Albumin 3.3 G/DL (3.4-5.0); Alkaline Phosphatase 67 U/L (45-117); Aspartate Amino Transferase 9 U/L (0-37); Bilirubin,Total < 0.39 MG/DL (0.20-1.00); Blood Urea Nitrogen 11 MG/DL (7-18); Calcium 8.8 MG/DL (8.5-10.1); Carbon Dioxide 27 MMOL/L (21-32); Chloride 106 MMOL/L (98-107); Glucose 92 MG/DL (74-106); Osmolality,Calculated 275.5 MOS/KG (273-304); Potassium 4.1 MMOL/L (3.5-5.1); Sodium 139 MMOL/L (136-145); Total Protein 6.8 G/DL (6.4-8.2)
[2022-02-01] MEDS ORDERED: LEVOTHYROXINE 25 MCG TABLET PO SCH (06:30)
[2022-02-01] MEDS: INSULIN LISPRO 100 UNIT/ML SUBCUT SCH ×2 (07:50→12:02)
[2022-02-01] MEDS: PANTOPRAZOLE 40 MG TABLET PO SCH (08:52)
[2022-02-01] MEDS: RANOLAZINE 500 MG TABLET PO SCH (08:52)
[2022-02-01] MEDS: TICAGRELOR 90 MG TABLET PO SCH (08:52)
[2022-02-01] MEDS ORDERED: lisinopriL 10 MG TABLET PO SCH (09:00)
[2022-02-01] MEDS ORDERED: ASPIRIN EC 81 MG TABLET PO SCH (09:00)
[2022-02-01] MEDS ORDERED: ISOSORBIDE MONONITRATE 60 MG TABLET PO SCH (09:00)
[2022-02-01] MEDS ORDERED: DILTIAZEM CD 180 MG CAPSULE PO SCH (09:00)
[2022-02-01] MEDS: GABAPENTIN 100 MG CAPSULE PO SCH (09:02)
[2022-02-01 12:55] VITALS: BP 105/52
[2022-02-01] MEDS: ENOXAPARIN 40 MG/0.4 ML SYRINGE SUBCUT SCH (16:00)
== END 2022-02-01 16:00 | disposition home or self-care (01) | DRG 175 ==
LOC: N.EDINP 13:23 → N.ED 13:23 → SUATTDRO 15:33 → N.2W 16:20
PROVIDERS: ADMIT Internal Medicine; ATTEND Internal Medicine
PROC: CLCCHCL (ICD-10-PCS; 2022-01-31 15:15)